=== PATIENT | male | born 1955 | race Caucasian/White ===

== ENCOUNTER 2018-02-05 04:33 | Emergency (ER) | payer OTHER, SELFPAY ==
[2018-02-05 04:34] VITALS: BP 131/85; PULSE 57; RESP 24; TEMP 36.2; O2SAT 97; BMI 32.8
[2018-02-05 04:39] VITALS: PULSE 55
[2018-02-05 04:40] VITALS: BP 139/83; PULSE 53; RESP 16; O2SAT 96
--- NOTE | 2018-02-05 04:40 | RAD_ITS ---
STUDY: X-RAY CHEST REASON FOR EXAM: Male, 62 years old. Headache TECHNIQUE: Single frontal view of the chest. COMPARISON: 08/27/2016 FINDINGS: The lungs are clear and expanded. There is no demonstrated pleural abnormality. Normal size heart. Normal mediastinum and esther. Normal visualized pulmonary arteries. Normal visualized aortic arch and descending thoracic aorta. Lumbar vertebroplasty. Normal visualized ribs, clavicles, and shoulders. There is no demonstrated abnormality of the visualized soft tissue structures of the upper abdomen. RAD/Chest 1 View IMPRESSION: No acute pulmonary findings. Electronically Signed: Biju Marie MD at 5:22 EDT Tel , Service support ,
--- NOTE | 2018-02-05 04:40 | CT_ITS ---
STUDY: CT BRAIN WITHOUT CONTRAST REASON FOR EXAM: Male, 62 years old. Sudden onset of severe headache. Right-sided pain. RADIATION DOSAGE (If Supplied By Facility): CTDIvol = ( 44.99 ) mGy, DLP = ( 846.73 ) mGycm TECHNIQUE: Transaxial CT imaging of the brain was performed without administration of intravenous contrast material. Individualized dose optimization techniques were used for this CT. COMPARISON: None. FINDINGS: Normal soft tissue structures. Normal calvarium. Normal size ventricles and extra-axial spaces for the patient's age. Normal white matter tracts of the cerebral hemispheres. Normal basal ganglia and thalami. Normal brainstem. Normal cerebellum. Peripheral right posterior parietal parenchymal hematoma measuring 3.8 x 2.8 x 1.5 cm. There are no findings of an acute ischemic infarction. Left anterior ethmoid sinus mucosal thickening. Postoperative changes of bilateral maxillary sinus surgery. CT/Brain/Head without Contrast IMPRESSION: Parenchymal hematoma right posterior parietal lobe. Considerations include arteriovenous malformation, hemorrhagic mycotic aneurysm, amyloidosis or hemorrhagic metastasis. Recommend MRI with contrast for further evaluation. N.B. : The above information has been verbally conveyed by Jani Alfred MD to Poppy Ramos MD, on 02/05/2018 05:23:33 (ET). Electronically Signed: Jani Alfred MD at 5:13 EDT , Service support ,
--- NOTE | 2018-02-05 04:40 | EKG12_ITS ---
Test Reason : HEADACHE Blood Pressure : / mmHG Vent. Rate : 055 BPM Atrial Rate : 055 BPM P-R Int : 178 ms QRS Dur : 090 ms QT Int : 470 ms P-R-T Axes : 025 -20 018 degrees QTc Int : 449 ms Sinus bradycardia Moderate voltage criteria for LVH, may be normal variant Borderline ECG Confirmed by NISREEN RIOJAS, QUETA ([id number]), editorial specialist MARY MCCARTY ([id number]) on 02/12/2018 1:53:32 PM Referred By: YELENA Confirmed By:QUETA NIELSON MD
--- NOTE | 2018-02-05 04:40 | ED.RN ---
called for ekg per rn request, pulled old ekgs for
--- NOTE | 2018-02-05 04:41 | ED.VISSUMM ---
- ER Visit Summary Date of Service: 02/05/18 Chief Complaint: Headache History of Present Illness: The patient is a 62 M who presents for severe headache. Patient had been having a headache that occurred while in bed for approximately 2 hours, with sudden acute worsening. Patient states it is the worst headache he has had. He has been receiving a workup for headaches at the [facility] and had a negative MRI. He states this headache is worse than any he has had before. It is in his frontal head and radiates back to the occipital region. He has associated nausea. Patient denies any numbness or weakness in the arms or legs. He has had mild blurry vision. Upon arrival in the emergency department he had a near syncopal episode. Patient has history of a TIA. No history of diabetes, myocardial infarction, but he does have history of coronary artery disease and one stent in place. No history of trauma. Patient is not on any anticoagulation but is on plavix and aspirin. Physical Examination: Vital signs: afebrile, hemodynamically stable, no hypoxia on room air General: well nourished, well developed, in mild distress distress Skin: warm, dry, no rash, skin is pale HEENT: normocephalic and atraumatic, no tenderness, no lesions; PERRL, EOMI, moist mucous membranes no facial droop Cardiovascular: regular rate and rhythm without murmurs, no peripheral edema, 2+ pulses all distal extremities upper and lower, symmetric Respiratory: No increased work of breathing, lungs are clear to auscultation bilaterally, no rales, rhonchi or wheezing Abdominal: Abdomen is soft, nontender with normoactive bowel sounds, no guarding or rebound, no masses MSK: Moves all extremities, no deformities, normal strength Neuro: Awake and alert, oriented ?4. No facial droop, no aphasia, no dysarthria, sensation and motor function intact and symmetric Test Results: Abnormal Lab Results 02/05/18 02/05/18 02/05/18 04:35 04:35 04:35 WBC 10.1 RBC 4.98 Hgb 15.2 Hct 41.7 MCV 83.7 MCH 30.5 MCHC 36.5 H RDW 12.6 RDW Differential 37.9 Plt Count 308 MPV 9.9 Immature Gran % (Auto) 0.600 Neut % (Auto) 59.3 Lymph % (Auto) 29.4 [place] % (Auto) 8.5 Eos % (Auto) 1.4 Baso % (Auto) 0.8 Absolute Neuts (auto) 6.0 Absolute Lymphs (auto) 2.96 Total Counted Not Reportable PT 13.5 INR 1.0 APTT 30.8 Sodium 142 Potassium 3.5 Chloride 106 Carbon Dioxide 27.0 Anion Gap 9 BUN 10 Creatinine 1.01 Estim Creat Clear Calc 73.89 Est GFR (MDRD) Af Amer 96 Est GFR (MDRD) Non-Af 79 BUN/Creatinine Ratio 9.9 L Glucose 114 H Calcium 8.8 Troponin I < 0.015 Clinical Impression(s) from Imaging Studies Brain CT 02/05/18 04:40 IMPRESSION: Parenchymal hematoma right posterior parietal lobe. Considerations include arteriovenous malformation, hemorrhagic mycotic aneurysm, amyloidosis or hemorrhagic metastasis. Recommend MRI with contrast for further evaluation. N.B. : The above information has been verbally conveyed by Jani Alfred MD to Poppy Ramos MD, on 02/05/2018 05:23:33 (ET). Electronically Signed: Jani Alfred MD at 5:13 EDT , Service support , Chest X-Ray 02/05/18 04:40 IMPRESSION: No acute pulmonary findings. Electronically Signed: Biju Marie MD at 5:22 EDT Tel , Service support , Medications Given Sodium Chloride () 1,000 mls @ 100 mls/hr IV .Q10H ONE Stop: 02/05/18 14:39 Last Admin: 02/05/18 05:07 Dose: 100 mls/hr Nicardipine HCl 25 mg/ Sodium (Chloride) 250 mls @ 50 mls/hr IV .Q5H MARIANO; Protocol Discontinued Medications Fentanyl Citrate (Sublimaze (100mcg Ampule)) 50 mcg IV X1 ONE Stop: 02/05/18 05:02 Last Admin: 02/05/18 05:07 Dose: 50 mcg Ondansetron HCl (Zofran) 4 mg IV X1 ONE Stop: 02/05/18 05:03 Last Admin: 02/05/18 04:44 Dose: 4 mg Emergency Department Course and Treatment: Patient presents complaining of a severe headache and had a near syncopal episode upon initial presentation. Patient initially was pale and appeared very uncomfortable, however at the end of the examination, his skin had returned to pink and warm, and he was able to keep his eyes open without discomfort. No neuro deficits noted on initial evaluation. Patient had an emergent head CT performed to evaluate for possible intracranial hemorrhage and it was positive for IPH of right parietal lobe. Emergent transport to [facility] for neurosurgical specialty care was arranged at patient's request of tertiary care center. Patient accepted by Dr. Guy. Patient remained hemodynamically stable and did not require any anti-hypertensive medications. Nicardipine drip ordered in case of increased BP. Patient given fentanyl for pain, titrated to pain control without causing altered mental status. Patient maintained his airway and had no decompensation. Repeat neuro evaluation did show some left visual field deficits, but no other neurologic deficits. Patient was transported via helicopter in clinic for further neurosurgical intervention. Care time of 38 minutes for emergent stabilization and evaluation, coordination of care, arrangement of transportation, discussion with specialist, frequent re-evaluations, and discussion with patient and family. Treatment Plan: [] Disposition: transfer to [facility] Main neurosurgical ICU via air transport Impression: spontaneous right posterior parietal lobe intraparenchymal hemorrhage This note was generated with [employer] dictation software. It may contain incorrect words, spelling, and punctuation that were not noted in review of the chart prior to signing ED Disposition - Plan for ED Patient: Chief Complaint: Headache Referrals: Nenita Knott MD [Primary Care Provider] -
[2018-02-05] MEDS: Ondansetron 4 MG/2 ML Vial IV (04:44)
--- NOTE | 2018-02-05 04:47 | ED.DCSUM_ITS ---
- ER Visit Summary Date of Service: 02/05/18 Chief Complaint: Headache History of Present Illness: The patient is a 62 M who presents for severe headache. Patient had been having a headache that occurred while in bed for approximately 2 hours, with sudden acute worsening. Patient states it is the worst headache he has had. He has been receiving a workup for headaches at the [facility] and had a negative MRI. He states this headache is worse than any he has had before. It is in his frontal head and radiates back to the occipital region. He has associated nausea. Patient denies any numbness or weakness in the arms or legs. He has had mild blurry vision. Upon arrival in the emergency department he had a near syncopal episode. Patient has history of a TIA. No history of diabetes, myocardial infarction, but he does have history of coronary artery disease and one stent in place. No history of trauma. Patient is not on any anticoagulation but is on plavix and aspirin. Physical Examination: Vital signs: afebrile, hemodynamically stable, no hypoxia on room air General: well nourished, well developed, in mild distress distress Skin: warm, dry, no rash, skin is pale HEENT: normocephalic and atraumatic, no tenderness, no lesions; PERRL, EOMI, moist mucous membranes no facial droop Cardiovascular: regular rate and rhythm without murmurs, no peripheral edema, 2+ pulses all distal extremities upper and lower, symmetric Respiratory: No increased work of breathing, lungs are clear to auscultation bilaterally, no rales, rhonchi or wheezing Abdominal: Abdomen is soft, nontender with normoactive bowel sounds, no guarding or rebound, no masses MSK: Moves all extremities, no deformities, normal strength Neuro: Awake and alert, oriented ?4. No facial droop, no aphasia, no dysarthria, sensation and motor function intact and symmetric Test Results: Abnormal Lab Results 02/05/18 02/05/18 02/05/18 04:35 04:35 04:35 WBC 10.1 RBC 4.98 Hgb 15.2 Hct 41.7 MCV 83.7 MCH 30.5 MCHC 36.5 H RDW 12.6 RDW Differential 37.9 Plt Count 308 MPV 9.9 Immature Gran % (Auto) 0.600 Neut % (Auto) 59.3 Lymph % (Auto) 29.4 [place] % (Auto) 8.5 Eos % (Auto) 1.4 Baso % (Auto) 0.8 Absolute Neuts (auto) 6.0 Absolute Lymphs (auto) 2.96 Total Counted Not Reportable PT 13.5 INR 1.0 APTT 30.8 Sodium 142 Potassium 3.5 Chloride 106 Carbon Dioxide 27.0 Anion Gap 9 BUN 10 Creatinine 1.01 Estim Creat Clear Calc 73.89 Est GFR (MDRD) Af Amer 96 Est GFR (MDRD) Non-Af 79 BUN/Creatinine Ratio 9.9 L Glucose 114 H Calcium 8.8 Troponin I < 0.015 Clinical Impression(s) from Imaging Studies Brain CT 02/05/18 04:40 IMPRESSION: Parenchymal hematoma right posterior parietal lobe. Considerations include arteriovenous malformation, hemorrhagic mycotic aneurysm, amyloidosis or hemorrhagic metastasis. Recommend MRI with contrast for further evaluation. N.B. : The above information has been verbally conveyed by Jani Alfred MD to Poppy Ramos MD, on 02/05/2018 05:23:33 (ET). Electronically Signed: Jani Alfred MD at 5:13 EDT , Service support , Chest X-Ray 02/05/18 04:40 IMPRESSION: No acute pulmonary findings. Electronically Signed: Biju Marie MD at 5:22 EDT Tel , Service support , Medications Given Sodium Chloride () 1,000 mls @ 100 mls/hr IV .Q10H ONE Stop: 02/05/18 14:39 Last Admin: 02/05/18 05:07 Dose: 100 mls/hr Nicardipine HCl 25 mg/ Sodium (Chloride) 250 mls @ 50 mls/hr IV .Q5H MARIANO; Protocol Discontinued Medications Fentanyl Citrate (Sublimaze (100mcg Ampule)) 50 mcg IV X1 ONE Stop: 02/05/18 05:02 Last Admin: 02/05/18 05:07 Dose: 50 mcg Ondansetron HCl (Zofran) 4 mg IV X1 ONE Stop: 02/05/18 05:03 Last Admin: 02/05/18 04:44 Dose: 4 mg Emergency Department Course and Treatment: Patient presents complaining of a severe headache and had a near syncopal episode upon initial presentation. Patient initially was pale and appeared very uncomfortable, however at the end of the examination, his skin had returned to pink and warm, and he was able to keep his eyes open without discomfort. No neuro deficits noted on initial evaluation. Patient had an emergent head CT performed to evaluate for possible intracranial hemorrhage and it was positive for IPH of right parietal lobe. Emergent transport to [facility] for neurosurgical specialty care was arranged at patient's request of tertiary care center. Patient accepted by Dr. Guy. Patient remained hemodynamically stable and did not require any anti-hypertensive medications. Nicardipine drip ordered in case of increased BP. Patient given fentanyl for pain, titrated to pain control without causing altered mental status. Patient maintained his airway and had no decompensation. Repeat neuro evaluation did show some left visual field deficits, but no other neurologic deficits. Patient was transported via helicopter in clinic for further neurosurgical intervention. Care time of 38 minutes for emergent stabilization and evaluation, coordination of care, arrangement of transportation, discussion with specialist, frequent re- evaluations, and discussion with patient and family. Treatment Plan: [] Disposition: transfer to [facility] Main neurosurgical ICU via air transport Impression: spontaneous right posterior parietal lobe intraparenchymal hemorrhage This note was generated with [employer] dictation software. It may contain incorrect words, spelling, and punctuation that were not noted in review of the chart prior to signing ED Disposition - Plan for ED Patient: Chief Complaint: Headache Referrals: Nenita Knott MD [Primary Care Provider] -
[2018-02-05 04:51] VITALS: O2SAT 97
[2018-02-05 04:51] LABS: Absolute Lymphocyte Count 2.96 X10^3/ul (0.83-4.51); Basophil# 0.08 X10^3/uL; Basophil% 0.8 % (0-1); Eosinophil# 0.14 X10^3/uL; Eosinophils% 1.4 % (0-5); Hematocrit 41.7 % (40-54); Hemoglobin 15.2 g/dl (13.0-16.5); Lymphocyte # 2.96 X10^3/ul (4.0); Lymphocyte % 29.4 % (19-41); Mean Corp Hgb Conc 36.5 g/gl (32-36); Mean Corpuscular Hgb 30.5 pg (27.0-32.0); Mean Corpuscular Volume 83.7 fL (80-94); Mean Platelet Vol. 9.9 fl (6.2-12.0); Monocyte# 0.86 X10^3/uL; Monocyte% 8.5 % (0-10); Neutrophil # 5.96 X10^3/uL (2.7-7.7); Neutrophil % 59.3 % (47-70); Platelet Count 308 K/mm3 (150-450); RBC Distribution Width CV 12.6 % (11.6-14.6); RBC Distribution Width SD 37.9 fl (35.1-43.9); Red Blood Count 4.98 M/mm3 (4.6-6.2); White Blood Count 10.1 K/mm3 (4.4-11.0)
[2018-02-05 04:52] LABS: POSITIVE COUNT NO; POSITIVE DIFFERENTIAL NO; POSITIVE MORPHOLOGY NO
[2018-02-05] MEDS: 0.9% Normal Saline 1,000 ML 100 ML IV (05:07)
[2018-02-05] MEDS: fentaNYL 100 MCG/2 ML Ampul 50 MCG IV (05:07)
[2018-02-05 05:11] LABS: Prothrombin Time (Protime)PT. 13.5 SECONDS (11.7-14.9)
[2018-02-05 05:12] LABS: Anion Gap 9 (5-15); BUN 10 mg/dL (7-18); BUN/Creat Ratio 9.9 RATIO (10-20); Calcium,Total 8.8 mg/dL (8.5-10.1); Chloride 106 mmol/L (98-107); Creatinine, Serum 1.01 mg/dL (0.70-1.30); EST Glomerular Filtration Rate 79 mL/min (>60); Est Glom Filt Rate - Afr Amer 96 mL/min (>60); Estimated Creatinine Clearance 73.89 ml/min; Glucose 114 mg/dL (74-106); Partial Thromboplast Time 30.8 Seconds (24.1-36.2); Potassium 3.5 mmol/L (3.5-5.1); Sodium Level 142 mmol/L (136-145)
[2018-02-05] MEDS: fentaNYL 100 MCG/2 ML Ampul IV (05:37)
--- NOTE | 2018-02-05 05:39 | ED.RN ---
BEDSIDE REPORT GIVEN TO [facility]. DR. KIRK AT BEDSIDE.
[2018-02-05 05:52] VITALS: BP 124/79; PULSE 57; RESP 16; O2SAT 97
--- NOTE | 2018-02-05 05:56 | ED.RN ---
RU SENT WITH [facility] [employer] [facility].
[2018-02-05 07:15] LABS: Bedside Glucose 120 mg/dL (70-110)
== END 2018-02-05 05:57 | disposition short-term general hospital (02) ==
PROVIDERS: Emergency Provider Emergency Medicine; Family Provider Internal Medicine; PCP Internal Medicine
DX: I61.1 Nontraumatic intracerebral hemorrhage in hemisphere, cortical (principal); Z86.73 Personal history of transient ischemic attack (TIA), and cerebral infarction without residual deficits
CPT/HCPCS: 70450; 71045; 80048; 82962; 84484; 85025; 85610; 85730; 93005; 99285; J7030; J7050; A4216; J2405

== ENCOUNTER 2018-05-13 12:04 | Emergency (ER) | payer SELFPAY ==
[2018-05-13 12:05] VITALS: BP 135/85; PULSE 60; RESP 12; TEMP 36.7; O2SAT 94; BMI 33.0
--- NOTE | 2018-05-13 12:24 | EKG12_ITS ---
Test Reason : WEAKNESS Blood Pressure : / mmHG Vent. Rate : 055 BPM Atrial Rate : 055 BPM P-R Int : 180 ms QRS Dur : 090 ms QT Int : 440 ms P-R-T Axes : 023 -14 019 degrees QTc Int : 420 ms Sinus bradycardia Minimal voltage criteria for LVH, may be normal variant Borderline ECG Confirmed by NISREEN RIOJAS, QUETA ([id number]), editor producer MARY MCCARTY ([id number]) on 05/19/2018 9:55:56 AM Referred By: DOMINIQUE Confirmed By:QUETA NIELSON MD
[2018-05-13] MEDS: 0.9% Normal Saline 1,000 ML 150 ML IV (12:51)
[2018-05-13 12:53] LABS: Bacteria 0 SEEN /hpf (None Seen); Mucous, Urine 0 SEEN /hpf (<or=2+); Red Blood Cells-Urine 0 SEEN /hpf (0-5)
[2018-05-13 12:54] LABS: Color, Urine Yellow (Yellow); Glucose, Dipstick Normal (Normal); Ketone-Dipstick Negative (Negative); Leukocyte Esterase-Dipstick Negative /ul (Negative); Nitrite-Dipstick Negative (Negative); Occult Blood-Urine Negative /ul (Negative); Protein-Dipstick Negative (Negative); Urine Bilirubin Dipstick Negative (Negative); Urine Clarity Sl. Cloudy (Clear); Urine Urobilinogen Normal (Normal)
[2018-05-13 12:57] LABS: Absolute Lymphocyte Count 1.95 X10^3/ul (0.83-4.51); Absolute Neutrophil Count 5.5 X10^3/uL (2.0-7.7); Basophil# 0.05 X10^3/uL; Basophil% 0.6 % (0-1); Eosinophil# 0.11 X10^3/uL; Eosinophils% 1.3 % (0-5); Hematocrit 45.4 % (40-54); Lymphocyte # 1.95 X10^3/ul (4.0); Lymphocyte % 23.4 % (19-41); Mean Corp Hgb Conc 35.2 g/gl (32-36); Mean Corpuscular Hgb 30.1 pg (27.0-32.0); Mean Corpuscular Volume 85.3 fL (80-94); Mean Platelet Vol. 10.1 fl (6.2-12.0); Monocyte# 0.67 X10^3/uL; Neutrophil # 5.52 X10^3/uL (2.7-7.7); Neutrophil % 66.3 % (47-70); POSITIVE COUNT NO; POSITIVE DIFFERENTIAL NO; POSITIVE MORPHOLOGY NO; Platelet Count 274 K/mm3 (150-450); RBC Distribution Width CV 12.7 % (11.6-14.6); RBC Distribution Width SD 39.2 fl (35.1-43.9); Red Blood Count 5.32 M/mm3 (4.6-6.2); White Blood Count 8.3 K/mm3 (4.4-11.0)
--- NOTE | 2018-05-13 12:58 | RAD_ITS ---
STUDY: X-RAY CHEST REASON FOR EXAM: Male, 62 years old. Weakness. TECHNIQUE: Single AP portable view of the chest. COMPARISON: Comparison is made with prior study dated February 05, 2018. FINDINGS: EKG electrodes are seen. Hyperinflation. The lungs are clear. There is no demonstrated pleural abnormality. There is borderline cardiomegaly. Normal mediastinum and esther. Normal visualized pulmonary arteries. There is atherosclerotic tortuosity of the aortic arch and descending thoracic aorta. There are diffuse degenerative changes of the visualized thoracic spine. Normal visualized ribs, clavicles, and shoulders. There is no demonstrated abnormality of the visualized soft tissue structures of the upper abdomen. RAD/Chest 1 View (Portable) IMPRESSION: Borderline cardiomegaly. Electronically Signed: Mars Jacinto MD at 13:40 EST , Service support ,
[2018-05-13 13:01] LABS: Squamous Epithelial Cells - UA 0-5 SEEN /hpf (0-5); White Blood Cells 0-5 SEEN /hpf (0-5)
[2018-05-13 13:10] LABS: Anion Gap 8 (5-15); BUN 13 mg/dL (7-18); BUN/Creat Ratio 13.1 RATIO (10-20); Calcium,Total 9.2 mg/dL (8.5-10.1); Chloride 104 mmol/L (98-107); EST Glomerular Filtration Rate 80 mL/min (>60); Est Glom Filt Rate - Afr Amer 97 mL/min (>60); Estimated Creatinine Clearance 74.63 ml/min; Glucose 124 mg/dL (74-106); Potassium 3.4 mmol/L (3.5-5.1); Sodium Level 140 mmol/L (136-145)
--- NOTE | 2018-05-13 13:23 | CT_ITS ---
STUDY: CT BRAIN WITHOUT CONTRAST REASON FOR EXAM: Male, 62 years old. Worsening four-day weakness. RADIATION DOSAGE (If Supplied By Facility): CTDIvol = ( 44.99 ) mGy, DLP = ( 812.98 ) mGycm TECHNIQUE: Transaxial CT imaging of the brain was performed without administration of intravenous contrast material. Individualized dose optimization techniques were used for this CT. COMPARISON: Comparison is made with prior study dated February 05, 2018. FINDINGS: Normal soft tissue structures. Normal calvarium. The previously seen posterior parietal parenchymal hematoma as resolved. Normal size ventricles and extra-axial spaces for the patient's age. There are areas of decreased attenuation within the white matter tracts of the supratentorial brain, consistent with microvascular disease changes. Normal basal ganglia and thalami. Normal brainstem. Normal cerebellum. There is no intracranial hemorrhage. There are no findings of an acute ischemic infarction. Atherosclerotic calcification of the vertebral arteries and cavernous portions of the internal carotid arteries bilaterally. Normal visualized paranasal sinuses. CT/Brain/Head without Contrast IMPRESSION: The previously seen right posterior parietal parenchymal hematoma has resolved. No acute abnormality is seen. Electronically Signed: Mars Jacinto MD at 15:31 EST , Service support ,
[2018-05-13 14:48] VITALS: BP 123/83; PULSE 58; RESP 14; O2SAT 97
[2018-05-13 15:38] VITALS: BP 132/88; PULSE 57; RESP 14; O2SAT 96
--- NOTE | 2018-05-13 15:47 | ED.VISSUMM ---
- ER Visit Summary Date of Service: 05/13/18 Chief Complaint: [Weakness] History of Present Illness: The patient is a 62 M [presents to the emergency department complaint of generalized weakness that started 3 or 4 days ago. Patient states that he had a intracranial hemorrhage in January 2018. Since that time he had been doing well and has had some mild peripheral vision loss and intermittent dizziness. Over the last 3-4 days patient just feels like energy is drained out of him. He denies any exertional dyspnea or chest pain other than yesterday he had an episode that was very fleeting of some minimal chest tightness that resolved quickly. Today patient felt somewhat sweaty and diaphoretic but no chest pain. He does have a history of coronary artery disease with prior cardiac stent placed in 2013. Patient tells me that proximally September 2017 he had a heart catheterization that did not show any type of stenosis requiring intervention. Patient denies any blood in his stool or black tarry stool. He denies any infectious symptoms such as cough or vomiting or diarrhea. Patient is not had a fever.] Physical Examination: [HEENT-PERRLA, EOMI. Cranial nerves II through XII grossly intact. TMs clear. Mucous membranes moist. No adenopathy. Cardiovascular-regular rate and rhythm without murmur or ectopy Lungs-clear to auscultation, chest wall stable without crepitus or subcu emphysema Abdomen-normoactive bowel sounds, soft, nontender, no rebound or rigidity, no peritoneal signs. Extremities-intact ?4, normal range of motion, normal pulses, atraumatic] Test Results: [EKG obtained arrival showed sinus bradycardia with a ventricular rate of 55 bpm with no significant ST changes noted. CBC with differential obtained showed a white of 8.3, hemoglobin 16, hematocrit 45, platelets 274. Chemistries unremarkable other than a slightly depressed potassium at 3.4 for which I did write for 40 mEq of potassium chloride p.o. urinalysis was normal. Troponin was less than 0.015. Chest x-ray showed some borderline cardiomegaly. CT scan of the brain showed nothing acute.] Emergency Department Course and Treatment: [Patient was given normal saline. Patient had no further diaphoresis in the emergency department. He denies chest pain or shortness of breath at this time. His symptoms are different than the symptoms that he had when he required his cardiac stent.] Treatment Plan: [Had a long discussion with patient to the fact that I do not have a clear etiology of the cause of his symptoms. Given that his EKG is unremarkable and has a normal troponin and patient is not had exertional symptoms suspicion is low that symptoms are from a cardiac cause especially given that he has had a heart catheterization within the last 7-8 months. Discussed possible admission and stress testing versus going home and following up with primary care. Patient would prefer to go home and return if symptoms should return in any way. Patient has follow-up appointments later this week with his physicians from prior stroke.] Disposition: [Discharged home in stable condition. Patient advised to return if chest pain, increasing shortness of breath, or condition should worsen anyway.] Impression: [Generalized weakness-etiology uncertain] This note was generated with [employer] dictation software. It may contain incorrect words, spelling, and punctuation that were not noted in review of the chart prior to signing ED Disposition - Plan for ED Patient: Referrals: Nenita Knott MD [Primary Care Provider] -
--- NOTE | 2018-05-13 15:53 | ED.DEP ---
ED Disposition - Plan for ED Patient: Instructions: ED Weakness [facility] Referrals: Nenita Knott MD [Primary Care Provider] - 3-5 Days
[2018-05-13 16:05] VITALS: BP 136/100; PULSE 58; RESP 16; O2SAT 96
== END 2018-05-13 16:08 | disposition home or self-care (01) ==
LOC: ED 12:46
PROVIDERS: Emergency Provider Emergency Medicine; Family Provider Internal Medicine; PCP Internal Medicine
DX: R53.1 Weakness (principal); I25.10 Atherosclerotic heart disease of native coronary artery without angina pectoris; I10 Essential (primary) hypertension; Z95.5 Presence of coronary angioplasty implant and graft
CPT/HCPCS: 70450; 71045; 80048; 81001; 84484; 85025; 93005; 96360; 96361; 99284; J7030

== ENCOUNTER 2018-05-24 17:28 | Emergency (ER) | payer SELFPAY ==
[2018-05-24 17:28] VITALS: BP 127/83; PULSE 58; RESP 17; TEMP 36.4; O2SAT 94; BMI 32.5
--- NOTE | 2018-05-24 17:40 | EKG12_ITS ---
Test Reason : CP Blood Pressure : / mmHG Vent. Rate : 057 BPM Atrial Rate : 057 BPM P-R Int : 166 ms QRS Dur : 086 ms QT Int : 444 ms P-R-T Axes : 008 -25 023 degrees QTc Int : 432 ms Sinus bradycardia Minimal voltage criteria for LVH, may be normal variant Borderline ECG Confirmed by NISREEN RIOJAS, QUETA ([id number]), technical writer and editor MARY MCCARTY ([id number]) on 05/27/2018 10:19:05 AM Referred By: Confirmed By:QUETA NIELSON MD
--- NOTE | 2018-05-24 17:40 | RAD_ITS ---
STUDY: X-RAY CHEST REASON FOR EXAM: Male, 62 years old. Chest pain TECHNIQUE: AP COMPARISON: 05/13/2018 FINDINGS: EKG leads project over the chest. The lungs are clear and expanded. There is no demonstrated pleural abnormality. Normal size cardiac silhouette for portable technique. Normal mediastinum and esther. Normal visualized pulmonary arteries. There is atherosclerotic tortuosity of the aortic arch and descending thoracic aorta. No acute bony process. There is no demonstrated abnormality of the visualized soft tissue structures of the upper abdomen. RAD/Chest 1 View (Portable) IMPRESSION: Stable, nonacute portable x-ray examination of the chest. Electronically Signed: Blas Dee MD at 18:06 EST , Service support ,
[2018-05-24 17:41] VITALS: O2SAT 95
[2018-05-24] MEDS: Aspirin 81 MG TAB.CHEW 243 MG PO (17:44)
[2018-05-24] MEDS: 0.9% Normal Saline 1,000 ML 150 ML IV (17:44)
--- NOTE | 2018-05-24 17:44 | ED.DCSUM_ITS ---
- ER Visit Summary Date of Service: 05/24/18 Chief Complaint: Chest pain History of Present Illness: The patient is a 62 M is not felt well for the last 10 days or so. Patient was seen here in the ER 9 days ago with generalized fatigue and a single episode of some chest tightness. Workup was unremarkable. Patient states symptoms been waxing and waning since that time. He did not have chest tightness again until approximately 3 hours ago. He feels mildly short of breath stating that his pain is slightly worse when he takes a deep breath. He has not had significant cough. He did not break out in a sweat. Past history is significant for intracranial hemorrhage in January 2018. Patient states he saw his doctor yesterday for clearance from that. He does have heart history with a prior stent placed in 2013. Most recent cardiac cath is reportedly September 2017 that did not show any significant blockage. Physical Examination: Vital signs are unremarkable. Patient sitting upright in bed no acute distress. Head and neck examination normal. Heart is regular rate and rhythm. Lung sounds are grossly clear. He has mild chest wall tenderness. No crepitus. Abdomen is soft and nontender. Lower extremity examination reveals no calf tenderness or edema. Test Results: EKG is sinus at 57 with no acute ischemia. Portable chest x-ray is unremarkable. CBC and chemistry studies normal. Troponin less than 0.015. D-dimer 0.37. Emergency Department Course and Treatment: Patient did receive aspirin here. On repeat evaluation he is resting comfortably and visiting with family. We discussed admission for stress test versus heart cath as he did require stent in the past with a normal stress test. At this time patient declines admission. We discussed risks alternatives. He understands and wishes to go home. He will call for cardiology follow-up. If his symptoms worsen in any way he is to return immediately. Treatment Plan: [] Disposition: Discharge Impression: Chest pain This note was generated with [employer] dictation software. It may contain incorrect words, spelling, and punctuation that were not noted in review of the chart frida or to signing ED Disposition - Plan for ED Patient: Referrals: Nenita Knott MD [Primary Care Provider] -
[2018-05-24 18:07] LABS: Absolute Lymphocyte Count 1.83 X10^3/ul (0.83-4.51); Absolute Neutrophil Count 5.7 X10^3/uL (2.0-7.7); Basophil# 0.04 X10^3/uL; Basophil% 0.5 % (0-1); Eosinophil# 0.07 X10^3/uL; Eosinophils% 0.8 % (0-5); Hematocrit 47.1 % (40-54); Hemoglobin 16.3 g/dl (13.0-16.5); Lymphocyte # 1.83 X10^3/ul (4.0); Lymphocyte % 22.2 % (19-41); Mean Corp Hgb Conc 34.6 g/gl (32-36); Mean Corpuscular Hgb 30.1 pg (27.0-32.0); Mean Corpuscular Volume 87.1 fL (80-94); Mean Platelet Vol. 10.1 fl (6.2-12.0); Monocyte# 0.56 X10^3/uL; Monocyte% 6.8 % (0-10); Neutrophil # 5.72 X10^3/uL (2.7-7.7); Neutrophil % 69.5 % (47-70); Platelet Count 273 K/mm3 (150-450); RBC Distribution Width CV 12.9 % (11.6-14.6); RBC Distribution Width SD 40.7 fl (35.1-43.9); Red Blood Count 5.41 M/mm3 (4.6-6.2); White Blood Count 8.2 K/mm3 (4.4-11.0)
[2018-05-24 18:08] LABS: POSITIVE COUNT NO; POSITIVE DIFFERENTIAL NO; POSITIVE MORPHOLOGY NO
[2018-05-24 18:13] LABS: D-Dimer Quantitative (DVT/PE) 0.37 FEU/ug/m (0.27-0.49)
[2018-05-24 18:30] VITALS: BP 121/66; PULSE 58; RESP 14; O2SAT 96
[2018-05-24 18:34] LABS: Anion Gap 8 (5-15); BUN 14 mg/dL (7-18); BUN/Creat Ratio 13.7 RATIO (10-20); Calcium,Total 8.9 mg/dL (8.5-10.1); Chloride 108 mmol/L (98-107); Creatinine, Serum 1.02 mg/dL (0.70-1.30); EST Glomerular Filtration Rate 78 mL/min (>60); Est Glom Filt Rate - Afr Amer 94 mL/min (>60); Estimated Creatinine Clearance 73.16 ml/min; Glucose 111 mg/dL (74-106); Potassium 3.8 mmol/L (3.5-5.1); Sodium Level 144 mmol/L (136-145)
--- NOTE | 2018-05-24 19:21 | ED.DEP ---
ED Disposition - Plan for ED Patient: Disposition: Home or Assisted Living Instructions: ED Chest Pain Atypical Unkn Cause Referrals: Nenita Knott MD [Primary Care Provider] - Jones Andrews MD [STAFF PHYSICIAN] -
[2018-05-24 19:25] VITALS: BP 120/72; PULSE 55; RESP 16; O2SAT 95
== END 2018-05-24 19:30 | disposition home or self-care (01) ==
PROVIDERS: Emergency Provider Emergency Medicine; Family Provider Internal Medicine; PCP Internal Medicine
DX: R07.9 Chest pain, unspecified (principal); R06.00 Dyspnea, unspecified; I25.10 Atherosclerotic heart disease of native coronary artery without angina pectoris; Z86.73 Personal history of transient ischemic attack (TIA), and cerebral infarction without residual deficits; Z95.5 Presence of coronary angioplasty implant and graft
CPT/HCPCS: 71045; 80048; 84484; 85025; 85379; 93005; 96360; 96361; 99283; J7030; A4216

== ENCOUNTER 2018-05-25 12:21 | Observation (INO) | payer SELFPAY ==
[2018-05-24 17:28] VITALS: BMI 32.5
[2018-05-25] VITALS (10 sets, daily range): BP systolic 114–127; BP diastolic 67–76; PULSE 53–65; RESP 12–18; TEMP 36.8–37; O2SAT 94–96; BMI 32.5; BMI 33.3; BMI 33.4
--- NOTE | 2018-05-25 12:36 | RAD_ITS ---
STUDY: X-RAY CHEST REASON FOR EXAM: Male, 62 years old. Chest pain started on 05/24/2018, worsening TECHNIQUE: AP COMPARISON: Yesterday FINDINGS: EKG leads project over the chest. The lungs are clear and expanded. There is no demonstrated pleural abnormality. Normal size heart. Normal mediastinum and esther. Normal visualized pulmonary arteries. There is atherosclerotic tortuosity of the aortic arch and descending thoracic aorta. Normal visualized thoracic spine. Normal visualized ribs, clavicles, and shoulders. There is no demonstrated abnormality of the visualized soft tissue structures of the upper abdomen. RAD/Chest 1 View (Portable) IMPRESSION: Stable, nonacute portable x-ray examination of the chest. Electronically Signed: Blas Dee MD at 12:52 EST , Service support ,
--- NOTE | 2018-05-25 12:36 | EKG12_ITS ---
Test Reason : CP Blood Pressure : / mmHG Vent. Rate : 058 BPM Atrial Rate : 058 BPM P-R Int : 182 ms QRS Dur : 090 ms QT Int : 436 ms P-R-T Axes : 029 -12 026 degrees QTc Int : 428 ms Sinus bradycardia Minimal voltage criteria for LVH, may be normal variant Borderline ECG Confirmed by NISREEN RIOJAS, QUETA ([id number]), health editor MARY MCCARTY ([id number]) on 05/27/2018 9:20:12 AM Referred By: Spike Olivier Confirmed By:QUETA NIELSON MD
[2018-05-25 12:47] LABS: Absolute Lymphocyte Count 1.99 X10^3/ul (0.83-4.51); Absolute Neutrophil Count 7.6 X10^3/uL (2.0-7.7); Basophil# 0.05 X10^3/uL; Basophil% 0.5 % (0-1); Eosinophil# 0.12 X10^3/uL; Eosinophils% 1.1 % (0-5); Hematocrit 45.4 % (40-54); Hemoglobin 15.7 g/dl (13.0-16.5); Lymphocyte # 1.99 X10^3/ul (4.0); Lymphocyte % 18.8 % (19-41); Mean Corp Hgb Conc 34.6 g/gl (32-36); Mean Corpuscular Hgb 29.9 pg (27.0-32.0); Mean Corpuscular Volume 86.5 fL (80-94); Monocyte% 7.6 % (0-10); Neutrophil # 7.57 X10^3/uL (2.7-7.7); Neutrophil % 71.7 % (47-70); Platelet Count 257 K/mm3 (150-450); RBC Distribution Width CV 12.7 % (11.6-14.6); RBC Distribution Width SD 40.1 fl (35.1-43.9); Red Blood Count 5.25 M/mm3 (4.6-6.2); White Blood Count 10.6 K/mm3 (4.4-11.0)
[2018-05-25 12:48] LABS: POSITIVE COUNT NO; POSITIVE DIFFERENTIAL NO; POSITIVE MORPHOLOGY NO
[2018-05-25] MEDS: Aspirin 81 MG TAB.CHEW 324 MG PO (13:00)
[2018-05-25 13:02] LABS: Anion Gap 9 (5-15); BUN 13 mg/dL (7-18); BUN/Creat Ratio 12.9 RATIO (10-20); Calcium,Total 8.7 mg/dL (8.5-10.1); Chloride 106 mmol/L (98-107); Creatinine, Serum 1.01 mg/dL (0.70-1.30); EST Glomerular Filtration Rate 79 mL/min (>60); Est Glom Filt Rate - Afr Amer 95 mL/min (>60); Estimated Creatinine Clearance 73.89 ml/min; Glucose 127 mg/dL (74-106); Potassium 3.5 mmol/L (3.5-5.1); Sodium Level 141 mmol/L (136-145)
--- NOTE | 2018-05-25 13:03 | ED.DCSUM_ITS ---
- ER Visit Summary Date of Service: 05/25/18 Chief Complaint: Chest pain History of Present Illness: The patient is a 62 M presenting with chest pain and heaviness. Pain has been intermittent for the past couple of days. He was seen in the ED yesterday for similar complaints. At that time he declined admission. He states the heaviness and pain has intensified therefore he came back to the ED for further evaluation. He has associated diaphoresis, shortness of breath, lightheadedness. He has a history of hypertension and family history of heart disease. He had a previous stent in 2013. He denies PE/DVT risk factors. Physical Examination: Vitals are stable. Patient is afebrile. Alert no acute distress. HEENT exam is unremarkable. Neck is supple. Lungs are clear and equal bilaterally. Heart is regular rate and rhythm. Abdomen is soft nontender nondistended. Extremities are unremarkable. Skin is warm and dry. No focal neurologic deficit. Remainder of exam is unremarkable. Emergency Department Course and Treatment: Patient was given aspirin on arrival. He was given morphine, Zofran IV. EKG is sinus bradycardia rate of 58 with no acute ischemic changes. Chest x-ray shows no acute process. CBC unremarkable. Chemistries normal except for glucose 127. Troponin is negative. On reevaluation, patient is resting comfortably. Discussed with hospitalist for observation. Disposition: Observation Impression: Chest pain This note was generated with [employer] dictation software. It may contain incorrect words, spelling, and punctuation that were not noted in review of the chart prior to signing ED Disposition - Plan for ED Patient: Referrals: Nenita Knott MD [Primary Care Provider] -
[2018-05-25] MEDS: Ondansetron 4 MG/2 ML Vial IV (13:07)
[2018-05-25] MEDS: Morphine 4 MG/ML Syringe IV (13:07)
--- NOTE | 2018-05-25 13:53 | NURSING ---
PCU BRETT RITCHIE OBS
--- NOTE | 2018-05-25 13:53 | PCM.HP.STD ---
Problem List (1) Chest pain Status: Acute (2) CAD (coronary artery disease) Status: Chronic (3) CVA (cerebral vascular accident) Status: Chronic History of Present Illness Date of Admission: 05/25/18 Chief Complaint: CHEST PAIN The patient is a 62 year old M past medical history cigar for CAD with previous stent placement in September 2013 who presented with chest pain. Patient symptoms started a day prior to coming in. He had apparently been seen in the emergency department he was advised to stay to see care however he elected to be discharged and to present back if his pain worsened. He woke up on the morning of his presentation with recurrence. Pain was described as pressure located in the retrosternal region. Patient also did complain of some shortness of breath. Denied any nausea no vomiting. Presented to the ED as a result. Initial set of cardiac enzymes and EKG were unremarkable. Of note patient undergo left heart catheterization in September 2017 with no intervention performed. Past Medical History Past Medical History (Chronic Problems): Chronic Problems CVA (cerebral vascular accident) (Chronic) CAD (coronary artery disease) (Chronic) Allergies Penicillins Allergy (Verified 05/24/18 17:35) Rash Home Medications: Ambulatory Orders Medication Instructions Recorded Atorvastatin Calcium [Lipitor] 80 mg PO QHS 08/01/14 Lisinopril [Zestril] 20 mg PO DAILY 08/01/14 Nitroglycerin [Nitrostat] 0.4 mg SUBLINGUAL Q5M PRN 08/01/14 Aspirin [Aspirin EC] 81 mg PO DAILY 10/10/16 Chlorthalidone 25 mg PO DAILY 10/10/16 Metoprolol Tartrate [Lopressor 50 mg PO BID 10/10/16 (Beta Ashkan)] Surgical History: cholecystectomy, - - knee surgery, deviated septum Smoking Status: Never smoker - *Family History Maternal History Items: Cancer Paternal History Items: Cancer Sibling History Items: Cancer Review of Systems Constitutional: Denies: Anorexia, Chills, Fever, Night Sweats, Weight Change HEENT: Denies: Head Aches, Sinus Congestion, Sinus Drainage Cardiovascular: Denies: Chest Pain, Orthopnea, Palpitations, Paroxysmal Noc. Dyspnea Respiratory: Denies: Cough, Shortness of breath at rest, Shortness of breath upon exertion, Sputum production Gastrointestinal: Denies: Abdominal Pain, Hematemesis, Hematochezia, Nausea, Melena, Vomiting Genitourinary: Denies: Dysuria, Frequency, Hematuria, Urgency Musculoskeletal: Denies: Joint Pain, Joint Tenderness Skin: Denies: Rash Neurological: Denies: Focal weakness, Numbness, Tingling Psychiatric: Denies: Homicidal Ideations, Suicidal Ideations Hematologic/ Lymphatic: Denies: Easy Bruising, Easy Bleeding VTE Information - Inpt Only VTE Present on Admission: No VTE Mechan Device Prophylaxis: Knee High TAYLA Hose VTE Pharm Prophylaxis ordered?: Yes Patient Problems: Active and Suspected Problems Chest pain (Acute) Objective: GENERAL: cooperative HEENT: Atraumatic; moist oral mucosa EYES; Anicteric, Normal Conjunctiva NECK; supple, normal thyroid, no distended JVD. RESPIRATORY: Diminished to auscultation bilaterally, CARDIOVASCULAR: Regular S1 S2, no audible murmurs GI: soft, non-tender, normoactive bowel sounds, : No Renal angle tenderness; EXTREMITIES: No edema, no clubbing, no cyanosis. MUSCULOSKELETAL: No Joint Tenderness; no muscle waisting NEURO: Awake; no lateralizing signs. SKIN: No Rash PSYCH; Normal affect - Physical Exam Vital Signs Temp Pulse Resp BP Pulse Ox 98.6 F 55 L 12 124/74 H 95 05/25/18 12:21 05/25/18 13:21 05/25/18 13:21 05/25/18 13:21 05/25/18 13:21 Oxygen Delivery Method Room Air Weight: 99.79 kg Body Mass Index (BMI) 32.5 Finger Stick Blood Glucose 120 Laboratory Tests Past 24 Hrs 05/25/18 05/25/18 12:20 12:20 WBC 10.6 RBC 5.25 Hgb 15.7 Hct 45.4 MCV 86.5 MCH 29.9 MCHC 34.6 RDW 12.7 RDW Differential 40.1 Plt Count 257 MPV 10.0 Immature Gran % (Auto) 0.300 Neut % (Auto) 71.7 H Lymph % (Auto) 18.8 L Whitfield % (Auto) 7.6 Eos % (Auto) 1.1 Baso % (Auto) 0.5 Absolute Neuts (auto) 7.6 Absolute Lymphs (auto) 1.99 Total Counted Not Reportable Sodium 141 Potassium 3.5 Chloride 106 Carbon Dioxide 26.0 Anion Gap 9 BUN 13 Creatinine 1.01 Estim Creat Clear Calc 73.89 Est GFR (MDRD) Af Amer 95 Est GFR (MDRD) Non-Af 79 BUN/Creatinine Ratio 12.9 Glucose 127 H Calcium 8.7 Troponin I < 0.015 Assessment/Plan All Active Problems Chest pain (Acute) Patient is a 62-year-old gentleman with known CAD presented with chest pain 1. Chest Pain: Placed on a monitored bed; rule out for Myocardial infarction with serial cardiac enzymes and EKGs. If negative, rule out Myocardial Ischemia with nuclear medicine stress test. As part of his management ordered 2D echo and a requisition sent for old records from [facility] 2. CAD status post PCI in September 2013 3. Hypertension-blood pressure controlled, home medications continued with dose adjustment as needed 4. Dyslipidemia-patient is on statin therapy, continued at home dose 5. History of old hemorrhagic stroke in January 2018; no residual effect 6. BMI of 32.5 weight loss advised 7. DVT prophylaxis SC Lovenox Code Visit OBSV E&M: [id number] Initial observation care L3
--- NOTE | 2018-05-25 14:34 | EKG12_ITS ---
Test Reason : CP Blood Pressure : / mmHG Vent. Rate : 050 BPM Atrial Rate : 050 BPM P-R Int : 178 ms QRS Dur : 090 ms QT Int : 458 ms P-R-T Axes : 012 -16 009 degrees QTc Int : 417 ms Sinus bradycardia Minimal voltage criteria for LVH, may be normal variant Borderline ECG Confirmed by BASILIO RIOJAS, HERIBERTO ([id number]), food expeditor MARY MCCARTY ([id number]) on 05/28/2018 10:13:38 AM Referred By: Spike Olivier Confirmed By:HERIBERTO RICHMOND MD
--- NOTE | 2018-05-25 14:46 | ECHOD_ITS ---
Reason For Study: Chest pain Procedure This was a 2D Doppler, Color Flow transthoracic echocardiogram. Exam performed in department. Left Ventricle Normal LV size. Left ventricular systolic function is normal. The estimated ejection fraction is 60 %. Stage 1 diastolic dysfunction. No regional wall motion abnormalities noted. Right Ventricle Normal RV size. Normal systolic function. Atria Normal left atrium. Normal right atrium. Mitral Valve Normal mitral valve. Tricuspid Valve Normal tricuspid valve. Mild (1+) tricuspid valve insufficiency. Pulmonary artery systolic pressure is 32 mmHg. Aortic Valve Normal aortic valve. Trisinus/trileaflet aortic valve. Pulmonic Valve Normal pulmonic valve. Great Vessels Normal aortic root. The pulmonary artery is normal size. Normal inferior vena cava. Pericardium/Pleural No pericardial effusion. MMode/2D Measurements & Calculations LVIDd: 4.8 cm IVSd: 1.2 cm Ao root diam: 3.9 cm LVIDs: 2.4 cm LVPWd: 1.1 cm RVDd: 3.9 cm FS: 49.1 % LAV(MOD-bp): 54.0 ml EDV(MOD-sp4): 102.1 ml EDV(MOD-sp2): 96.2 ml LAV(MOD-bp) Indexed: 24.9 ml/m2 ESV(MOD-sp4): 27.6 ml EF(MOD-sp2): 67.8 % LAV(MOD-sp2): 61.8 ml EF(MOD-sp4): 72.9 % LAV(MOD-sp4): 41.0 ml SV(MOD-sp4): 74.5 ml SV(MOD-sp2): 65.2 ml LA A4 area: 16.9 cm2 RA A4 area: 15.6 cm2 Doppler Measurements & Calculations MV E max junior: 77.4 cm/sec Lat Peak E' Junior: 10.1 cm/sec Med Peak E' Junior: 7.7 cm/sec MV A max junior: 87.2 cm/sec E/E' lat: 7.7 E/E' med: 10.1 MV E/A: 0.89 Ao V2 max: 159.1 cm/sec LV V1 max: 139.6 cm/sec PA V2 max: 165.5 cm/sec Ao max P.1 mmHg LV V1 max P.8 mmHg TR max junior: 259.0 cm/sec TR max P.3 mmHg Interpretation Summary Normal LV size. Left ventricular systolic function is normal. The estimated ejection fraction is 60 %. Stage 1 diastolic dysfunction. Mild (1+) tricuspid valve insufficiency. Ordering Physician: Spike Olivier Referring Physician: Nenita Knott M.D. Performed By: Fior Collazo RDCS
[2018-05-25] MEDS: Morphine 2 MG/ML Syringe IV (17:50)
[2018-05-25] MEDS: Famotidine 20 MG Tablet PO (21:08)
[2018-05-25] MEDS: Atorvastatin Calcium 80 MG Tablet PO (21:08)
[2018-05-26] VITALS (7 sets, daily range): BP systolic 120–124; BP diastolic 67–72; PULSE 56–63; RESP 16–18; TEMP 36.4–37; O2SAT 95–97
[2018-05-26] MEDS: Morphine 2 MG/ML Syringe IV (01:16)
--- NOTE | 2018-05-26 04:00 | EKG12_ITS ---
Test Reason : AM Blood Pressure : / mmHG Vent. Rate : 057 BPM Atrial Rate : 057 BPM P-R Int : 172 ms QRS Dur : 090 ms QT Int : 454 ms P-R-T Axes : 071 -12 031 degrees QTc Int : 441 ms Sinus bradycardia Otherwise normal ECG Confirmed by BASILIO RIOJAS, HERIBERTO ([id number]), editorial clerk MARY MCCARTY ([id number]) on 05/28/2018 10:13:25 AM Referred By: Spike Olivier Confirmed By:HERIBERTO RICHMOND MD
[2018-05-26 05:05] LABS: Absolute Lymphocyte Count 2.17 X10^3/ul (0.83-4.51); Absolute Neutrophil Count 5.1 X10^3/uL (2.0-7.7); Basophil# 0.05 X10^3/uL; Basophil% 0.6 % (0-1); Eosinophil# 0.11 X10^3/uL; Eosinophils% 1.3 % (0-5); Hematocrit 43.3 % (40-54); Hemoglobin 14.9 g/dl (13.0-16.5); Lymphocyte # 2.17 X10^3/ul (4.0); Lymphocyte % 26.4 % (19-41); Mean Corp Hgb Conc 34.4 g/gl (32-36); Mean Corpuscular Hgb 29.7 pg (27.0-32.0); Mean Corpuscular Volume 86.4 fL (80-94); Mean Platelet Vol. 10.2 fl (6.2-12.0); Monocyte# 0.72 X10^3/uL; Monocyte% 8.8 % (0-10); Neutrophil # 5.13 X10^3/uL (2.7-7.7); Neutrophil % 62.5 % (47-70); Platelet Count 263 K/mm3 (150-450); RBC Distribution Width CV 12.7 % (11.6-14.6); RBC Distribution Width SD 38.9 fl (35.1-43.9); Red Blood Count 5.01 M/mm3 (4.6-6.2); White Blood Count 8.2 K/mm3 (4.4-11.0)
[2018-05-26 05:18] LABS: POSITIVE COUNT NO; POSITIVE DIFFERENTIAL NO; POSITIVE MORPHOLOGY NO
[2018-05-26 05:23] LABS: Partial Thromboplast Time 28.2 Seconds (24.1-36.2); Prothrombin Time (Protime)PT. 13.6 SECONDS (11.7-14.9)
[2018-05-26 05:25] LABS: Anion Gap 7 (5-15); BUN 11 mg/dL (7-18); BUN/Creat Ratio 12.1 RATIO (10-20); Calcium,Total 8.6 mg/dL (8.5-10.1); Chloride 105 mmol/L (98-107); Creatinine, Serum 0.91 mg/dL (0.70-1.30); EST Glomerular Filtration Rate 89 mL/min (>60); Est Glom Filt Rate - Afr Amer 108 mL/min (>60); Estimated Creatinine Clearance 82.01 ml/min; Glucose 95 mg/dL (74-106); Potassium 3.6 mmol/L (3.5-5.1); Sodium Level 142 mmol/L (136-145)
[2018-05-26] MEDS: Lisinopril 20 MG Tablet PO (06:07)
[2018-05-26] MEDS: Famotidine 20 MG Tablet PO (06:07)
[2018-05-26] MEDS: Aspirin E.C. 81 MG Tablet PO (06:07)
--- NOTE | 2018-05-26 12:34 | STRESSREP ---
Stress Test Report Pharmacologic myocardial perfusion stress test. 62-year-old man with a history of chest pain and known coronary artery disease. Stress protocol: Resting EKG demonstrates sinus bradycardia with a rate of 59 bpm normal intervals are noted resting blood pressure 126/82 mmHg. 0.4 mg of regadenoson was infused per usual protocol followed by rapid intravenous saline flush injection continuous EKG monitoring was performed. The maximum heart rate attained was 88 bpm which was 56% of maximum predicted heart rate the maximum workload was 1 metabolic equivalent. At rest there were no ST or T wave changes noted suggest ischemia peak exercise no ST or T wave changes were noted suggest ischemia. The resting blood pressure 126/82 with a final blood pressure 120/70 mmHg. Myocardial perfusion protocol. 12.0 mCi of technetium 99m sestamibi was injected at rest. 0.4 mg of regadenoson was infused per usual protocol peak infusion 32.0 mCi of technetium 99m sestamibi was injected stress images were obtained stress and rest images were reconstructed and compared in the short axis vertical long horizontal long axis. Gated images were also obtained. Perfusion SPECT analysis: Review of the images demonstrate normal uptake of tracer noted in all areas of myocardium. The resting images similarly demonstrate normal uptake of tracer noted in all areas of the myocardium. No areas of reversibility are noted suggest ischemia no previous infarct is noted. Gated SPECT analysis: The gated ejection fraction is noted to be 64%. Conclusion: Normal pharmacologic myocardial perfusion stress test. Preserved ejection fraction.
[2018-05-26] MEDS: Chlorthalidone 50 MG Tablet 25 MG PO (12:58)
--- NOTE | 2018-05-26 13:29 | PCM.DC ---
- Discharge Diagnoses Current Active Problems: Current Active and Chronic Problems Chest pain (Acute) You will use the following diet at home:: Cardiac Call your doctor if you observe: Shortness of breath, Dizziness, Fainting spells, Chest pain Allergies/Adverse Reactions: Allergies Penicillins Allergy (Verified 05/24/18 17:35) Rash Medications to take at Discharge Atorvastatin Calcium [Lipitor] 80 mg PO QHS 08/01/14 Lisinopril [Zestril] 20 mg PO DAILY 08/01/14 Nitroglycerin [Nitrostat] 0.4 mg SUBLINGUAL Q5M PRN 08/01/14 Aspirin [Aspirin EC] 81 mg PO DAILY 10/10/16 Chlorthalidone 25 mg PO DAILY 10/10/16 Metoprolol Tartrate [Lopressor (beta odell)] 50 mg PO BID 10/10/16 Primary Care Physician: Nenita Knott MD [Primary Care Provider] - Please follow up with your Primary Care Physician in: 1 Week Test Results: Test results from this visit will be discussed in further detail at your follow-up appointment, if applicable. Please Follow Up With: Anthony Dawn MD When: 1-2 Weeks Proposed Discharge Date: 05/26/18
--- NOTE | 2018-05-26 13:39 | DCINST_ITS ---
- Discharge Diagnoses Current Active Problems: Current Active and Chronic Problems Chest pain (Acute) You will use the following diet at home:: Cardiac Call your doctor if you observe: Shortness of breath, Dizziness, Fainting spells, Chest pain Allergies/Adverse Reactions: Allergies Penicillins Allergy (Verified 05/24/18 17:35) Rash Medications to take at Discharge Atorvastatin Calcium [Lipitor] 80 mg PO QHS 08/01/14 Lisinopril [Zestril] 20 mg PO DAILY 08/01/14 Nitroglycerin [Nitrostat] 0.4 mg SUBLINGUAL Q5M PRN 08/01/14 Aspirin [Aspirin EC] 81 mg PO DAILY 10/10/16 Chlorthalidone 25 mg PO DAILY 10/10/16 Metoprolol Tartrate [Lopressor (beta odell)] 50 mg PO BID 10/10/16 Primary Care Physician: Nenita Knott MD [Primary Care Provider] - Please follow up with your Primary Care Physician in: 1 Week Test Results: Test results from this visit will be discussed in further detail at your follow- up appointment, if applicable. Please Follow Up With: Anthony Dawn MD When: 1-2 Weeks Proposed Discharge Date: 05/26/18
--- NOTE | 2018-05-26 13:42 | PCM.DC.SUM ---
<Alta Bear - Last Filed: 05/26/18 13:49> Discharge Date and Diagnosis Date of Admission: 05/25/18 Date of Discharge: 05/26/18 - Primary Discharge Diagnosis Active and Suspected Problems 1. Chest pain, ACS ruled out - Secondary Discharge Diagnosis Chronic Problems CVA (cerebral vascular accident) (Chronic) CAD (coronary artery disease) (Chronic) Hospital Course and Treatment Imaging Results: Diagnostic Data Chest X-Ray 05/25/18 12:36 IMPRESSION: Stable, nonacute portable x-ray examination of the chest. Electronically Signed: Blas Dee MD at 12:52 EST , Service support , Operations: None Procedures: 2-D Echocardiogram, Stress test Summary of Care Provided: The patient is a 62 year old M admitted 05/25/18 due to chest pain. He has a past medical history of CAD status post stent in September 2013, hemorrhagic CVA, hypertension, hyperlipidemia. Patient most recently underwent left heart cath in September 2017 which showed nonobstructive coronary arteries. EKG without ST-T changes. Troponin negative. Patient underwent nuclear stress test which was negative for ischemia. Echocardiogram showed an EF of 60%, stage I diastolic dysfunction, mild tricuspid valve insufficiency. ACS ruled out. Other chronic medical conditions as noted above are stable at this time. Patient previously followed with Dr. Andrews, [facility] cardiology and wishes to establish with [facility]. Follow-up with cardiology in 1-2 weeks. Follow-up with primary care physician in 1 week. General: Alert, Cooperative, No apparent distress HEENT: Atraumatic, PERRLA, EOMI, Normocephalic Oral: No Gingival or Mucosal Lesions/ Ulcerations Neck: Supple, No JVD, No Nodes Lungs: Normal air movement, clear to auscultation Cardiovascular: Regular rate, Regular Rhythm, Normal S1, Normal S2, No murmurs Abdomen: Bowel Sounds Present, Soft, Non Tender Extremities: No cyanosis, No edema Skin: No rashes, No breakdown Musculoskeletal: No Tenderness to Palpation of Joints or Extremities Lymphatic: No Cervical, Supraclavicular, or Inguinal Adenopathy Neurological: Cranial nerves II-XII grossly intact, Neuro grossly intact Psych/Mental Status: Normal Affect Patient seen and examined prior to discharge. Physical assessment as noted above. Patient is stable for discharge with follow up recommendations as noted above. This patient was seen by KATARINA Stroud under the supervision of Dr. Horton. - Physical Exam Vital Signs Temp Pulse Resp BP Pulse Ox 98.2 F 58 L 18 122/70 H 96 05/26/18 06:03 05/26/18 12:59 05/26/18 06:03 05/26/18 12:59 05/26/18 06:03 Oxygen Delivery Method Room Air Weight: 225 lb 15.581 oz Body Mass Index (BMI) 33.3 Finger Stick Blood Glucose 120 Intake and Output for Last 24 Hours 05/24/18 05/25/18 05/26/18 23:59 23:59 23:59 Intake Total 640 / 640 120 / 120 Balance 640 / 640 120 / 120 Laboratory Tests Past 24 Hrs 05/25/18 05/25/18 05/26/18 15:40 17:55 04:38 WBC 8.2 RBC 5.01 Hgb 14.9 Hct 43.3 MCV 86.4 MCH 29.7 MCHC 34.4 RDW 12.7 RDW Differential 38.9 Plt Count 263 MPV 10.2 Immature Gran % (Auto) 0.400 Neut % (Auto) 62.5 Lymph % (Auto) 26.4 [place] % (Auto) 8.8 Eos % (Auto) 1.3 Baso % (Auto) 0.6 Absolute Neuts (auto) 5.1 Absolute Lymphs (auto) 2.17 Total Counted Not Reportable PT INR APTT Sodium Potassium Chloride Carbon Dioxide Anion Gap BUN Creatinine Estim Creat Clear Calc Est GFR (MDRD) Af Amer Est GFR (MDRD) Non-Af BUN/Creatinine Ratio Glucose Calcium Troponin I < 0.015 < 0.015 05/26/18 05/26/18 04:38 04:38 WBC RBC Hgb Hct MCV MCH MCHC RDW RDW Differential Plt Count MPV Immature Gran % (Auto) Neut % (Auto) Lymph % (Auto) [place] % (Auto) Eos % (Auto) Baso % (Auto) Absolute Neuts (auto) Absolute Lymphs (auto) Total Counted PT 13.6 INR 1.0 APTT 28.2 Sodium 142 Potassium 3.6 Chloride 105 Carbon Dioxide 30.0 Anion Gap 7 BUN 11 Creatinine 0.91 Estim Creat Clear Calc 82.01 Est GFR (MDRD) Af Amer 108 Est GFR (MDRD) Non-Af 89 BUN/Creatinine Ratio 12.1 Glucose 95 Calcium 8.6 Troponin I Discharge Diet: Low fat/ Low Cholesterol Call your doctor if you observe: Shortness of breath, Dizziness, Fainting spells, Chest pain Home Medications: Medications to take at Discharge Atorvastatin Calcium [Lipitor] 80 mg PO QHS 08/01/14 Lisinopril [Zestril] 20 mg PO DAILY 08/01/14 Nitroglycerin [Nitrostat] 0.4 mg SUBLINGUAL Q5M PRN 08/01/14 Aspirin [Aspirin EC] 81 mg PO DAILY 10/10/16 Chlorthalidone 25 mg PO DAILY 10/10/16 Metoprolol Tartrate [Lopressor (beta odell)] 50 mg PO BID 10/10/16 Primary Care Physician: Nenita Knott MD [Primary Care Provider] - Please follow up with your Primary Care Physician in: 1 Week Please Follow Up With: Anthony Dawn MD When: 1-2 Weeks Disposition: Home Minutes spent on discharge:: 35 Patient Condition:: Stable Medical Necessity - Tobacco Use Smoking Status: Never smoker Meaningful Use Info Meaningful Use Diagnoses (Choose all that apply): None applicable <SolZuleyma E - Last Filed: 05/26/18 14:01> Discharge Date and Diagnosis - Secondary Discharge Diagnosis Chronic Problems CVA (cerebral vascular accident) (Chronic) CAD (coronary artery disease) (Chronic) Hospital Course and Treatment Imaging Results: 05/26/18 05:55 Nuclear Stress Test - Chemical [NM] Routine Summary of Care Provided: Hospitalist note Discharge summary above reviewed and I agree with above discharge and treatment plan. Patient was admitted for chest pain for evaluation. He had a history of CAD status post stents. His EKG revealed sinus bradycardia without evidence of acute ischemic changes. His troponin was negative x3. Chest x-ray showed no acute findings. He underwent nuclear stress test that revealed no evidence of stress-induced myocardial ischemia. ACS ruled out. 2D echocardiogram revealed normal LV size and function, ejection fraction of 60%, stage I diastolic dysfunction. Patient discharged home in a stable medical condition, continued on aspirin, statins, metoprolol and lisinopril, recommended follow-up with cardiology in 1-2 weeks, follow-up with PCP in 1 week. - Physical Exam General: Alert, Oriented x3, Cooperative, No apparent distress. HEENT: Atraumatic, PERRLA, EOMI. Neck: Supple, No JVD, Negative Carotid Bruits, Trachea Midline, Thyroid Normal. Lungs: Clear to auscultation, Normal air movement, No rhonchi, No wheeze, No rales. Cardiovascular: Regular rate, Regular Rhythm, Normal S1, Normal S2, PMI Normal. Abdomen: Bowel Sounds Present, Soft, Non Tender, Non-Distended, No Hepato-splenomegaly. Extremities: No clubbing, No cyanosis, No edema Skin: No rashes, No breakdown Neurological: Neuro grossly intact Vital Signs are stable. This note was generated with [employer] dictation software. It may contain incorrect words, spelling, and punctuation that were not noted in checking the note before signing. - Physical Exam Vital Signs Temp Pulse Resp BP Pulse Ox 98.2 F 58 L 18 122/70 H 96 05/26/18 06:03 05/26/18 12:59 05/26/18 06:03 05/26/18 12:59 05/26/18 06:03 Oxygen Delivery Method Room Air Weight: 225 lb 15.581 oz Body Mass Index (BMI) 33.3 Finger Stick Blood Glucose 120 Intake and Output for Last 24 Hours 05/24/18 05/25/18 05/26/18 23:59 23:59 23:59 Intake Total 640 / 640 120 / 120 Balance 640 / 640 120 / 120 Laboratory Tests Past 24 Hrs 05/25/18 05/25/18 05/26/18 15:40 17:55 04:38 WBC 8.2 RBC 5.01 Hgb 14.9 Hct 43.3 MCV 86.4 MCH 29.7 MCHC 34.4 RDW 12.7 RDW Differential 38.9 Plt Count 263 MPV 10.2 Immature Gran % (Auto) 0.400 Neut % (Auto) 62.5 Lymph % (Auto) 26.4 [place] % (Auto) 8.8 Eos % (Auto) 1.3 Baso % (Auto) 0.6 Absolute Neuts (auto) 5.1 Absolute Lymphs (auto) 2.17 Total Counted Not Reportable PT INR APTT Sodium Potassium Chloride Carbon Dioxide Anion Gap BUN Creatinine Estim Creat Clear Calc Est GFR (MDRD) Af Amer Est GFR (MDRD) Non-Af BUN/Creatinine Ratio Glucose Calcium Troponin I < 0.015 < 0.015 05/26/18 05/26/18 04:38 04:38 WBC RBC Hgb Hct MCV MCH MCHC RDW RDW Differential Plt Count MPV Immature Gran % (Auto) Neut % (Auto) Lymph % (Auto) [place] % (Auto) Eos % (Auto) Baso % (Auto) Absolute Neuts (auto) Absolute Lymphs (auto) Total Counted PT 13.6 INR 1.0 APTT 28.2 Sodium 142 Potassium 3.6 Chloride 105 Carbon Dioxide 30.0 Anion Gap 7 BUN 11 Creatinine 0.91 Estim Creat Clear Calc 82.01 Est GFR (MDRD) Af Amer 108 Est GFR (MDRD) Non-Af 89 BUN/Creatinine Ratio 12.1 Glucose 95 Calcium 8.6 Troponin I Disposition: Home Minutes spent on discharge:: 25 Patient Condition:: Stable Meaningful Use Info Meaningful Use Diagnoses (Choose all that apply): None applicable Code Visit OBSV E&M: 92806 Observation care discharge
--- NOTE | 2018-05-26 13:49 | DS.PCM_ITS ---
<Alta Bear - Last Filed: 05/26/18 13:49> Discharge Date and Diagnosis Date of Admission: 05/25/18 Date of Discharge: 05/26/18 - Primary Discharge Diagnosis Active and Suspected Problems 1. Chest pain, ACS ruled out - Secondary Discharge Diagnosis Chronic Problems CVA (cerebral vascular accident) (Chronic) CAD (coronary artery disease) (Chronic) Hospital Course and Treatment Imaging Results: Diagnostic Data Chest X-Ray 05/25/18 12:36 IMPRESSION: Stable, nonacute portable x-ray examination of the chest. Electronically Signed: Blas Dee MD at 12:52 EST , Service support , Operations: None Procedures: 2-D Echocardiogram, Stress test Summary of Care Provided: The patient is a 62 year old M admitted 05/25/18 due to chest pain. He has a past medical history of CAD status post stent in September 2013, hemorrhagic CVA, hypertension, hyperlipidemia. Patient most recently underwent left heart cath in September 2017 which showed nonobstructive coronary arteries. EKG without ST-T c hanges. Troponin negative. Patient underwent nuclear stress test which was negative for ischemia. Echocardiogram showed an EF of 60%, stage I diastolic dysfunction, mild tricuspid valve insufficiency. ACS ruled out. Other chronic medical conditions as noted above are stable at this time. Patient previously followed with Dr. Andrews, [facility] cardiology and wishes to establish with [facility]. Follow-up with cardiology in 1-2 weeks. Follow-up with primary care physician in 1 week. General: Alert, Cooperative, No apparent distress HEENT: Atraumatic, PERRLA, EOMI, Normocephalic Oral: No Gingival or Mucosal Lesions/ Ulcerations Neck: Supple, No JVD, No Nodes Lungs: Normal air movement, clear to auscultation Cardiovascular: Regular rate, Regular Rhythm, Normal S1, Normal S2, No murmurs Abdomen: Bowel Sounds Present, Soft, Non Tender Extremities: No cyanosis, No edema Skin: No rashes, No breakdown Musculoskeletal: No Tenderness to Palpation of Joints or Extremities Lymphatic: No Cervical, Supraclavicular, or Inguinal Adenopathy Neurological: Cranial nerves II-XII grossly intact, Neuro grossly intact Psych/Mental Status: Normal Affect Patient seen and examined prior to discharge. Physical assessment as noted above. Patient is stable for discharge with follow up recommendations as noted above. This patient was seen by KATARINA Stroud under the supervision of Dr. Horton. - Physical Exam Vital Signs Temp Pulse Resp BP Pulse Ox 98.2 F 58 L 18 122/70 H 96 05/26/18 06:03 05/26/18 12:59 05/26/18 06:03 05/26/18 12:59 05/26/18 06:03 Oxygen Delivery Method Room Air Weight: 225 lb 15.581 oz Body Mass Index (BMI) 33.3 Finger Stick Blood Glucose 120 Intake and Output for Last 24 Hours 05/24/18 05/25/18 05/26/18 23:59 23:59 23:59 Intake Total 640 / 640 120 / 120 Balance 640 / 640 120 / 120 Laboratory Tests Past 24 Hrs 05/25/18 05/25/18 05/26/18 15:40 17:55 04:38 WBC 8.2 RBC 5.01 Hgb 14.9 Hct 43.3 MCV 86.4 MCH 29.7 MCHC 34.4 RDW 12.7 RDW Differential 38.9 Plt Count 263 MPV 10.2 Immature Gran % (Auto) 0.400 Neut % (Auto) 62.5 Lymph % (Auto) 26.4 [place] % (Auto) 8.8 Eos % (Auto) 1.3 Baso % (Auto) 0.6 Absolute Neuts (auto) 5.1 Absolute Lymphs (auto) 2.17 Total Counted Not Reportable PT INR APTT Sodium Potassium Chloride Carbon Dioxide Anion Gap BUN Creatinine Estim Creat Clear Calc Est GFR (MDRD) Af Amer Est GFR (MDRD) Non-Af BUN/Creatinine Ratio Glucose Calcium Troponin I < 0.015 < 0.015 05/26/18 05/26/18 04:38 04:38 WBC RBC Hgb Hct MCV MCH MCHC RDW RDW Differential Plt Count MPV Immature Gran % (Auto) Neut % (Auto) Lymph % (Auto) [place] % (Auto) Eos % (Auto) Baso % (Auto) Absolute Neuts (auto) Absolute Lymphs (auto) Total Counted PT 13.6 INR 1.0 APTT 28.2 Sodium 142 Potassium 3.6 Chloride 105 Carbon Dioxide 30.0 Anion Gap 7 BUN 11 Creatinine 0.91 Estim Creat Clear Calc 82.01 Est GFR (MDRD) Af Amer 108 Est GFR (MDRD) Non-Af 89 BUN/Creatinine Ratio 12.1 Glucose 95 Calcium 8.6 Troponin I Discharge Diet: Low fat/ Low Cholesterol Call your doctor if you observe: Shortness of breath, Dizziness, Fainting spells, Chest pain Home Medications: Medications to take at Discharge Atorvastatin Calcium [Lipitor] 80 mg PO QHS 08/01/14 Lisinopril [Zestril] 20 mg PO DAILY 08/01/14 Nitroglycerin [Nitrostat] 0.4 mg SUBLINGUAL Q5M PRN 08/01/14 Aspirin [Aspirin EC] 81 mg PO DAILY 10/10/16 Chlorthalidone 25 mg PO DAILY 10/10/16 Metoprolol Tartrate [Lopressor (beta odell)] 50 mg PO BID 10/10/16 Primary Care Physician: Nenita Knott MD [Primary Care Provider] - Please follow up with your Primary Care Physician in: 1 Week Please Follow Up With: Anthony Dawn MD When: 1-2 Weeks Disposition: Home Minutes spent on discharge:: 35 Patient Condition:: Stable Medical Necessity - Tobacco Use Smoking Status: Never smoker Meaningful Use Info Meaningful Use Diagnoses (Choose all that apply): None applicable <Zuleyma Horton E - Last Filed: 05/26/18 14:01> Discharge Date and Diagnosis - Secondary Discharge Diagnosis Chronic Problems CVA (cerebral vascular accident) (Chronic) CAD (coronary artery disease) (Chronic) Hospital Course and Treatment Imaging Results: 05/26/18 05:55 Nuclear Stress Test - Chemical [NM] Routine Summary of Care Provided: Hospitalist note Discharge summary above reviewed and I agree with above discharge and treatment plan. Patient was admitted for chest pain for evaluation. He had a history of CAD status post stents. His EKG revealed sinus bradycardia without evidence of acute ischemic changes. His troponin was negative x3. Chest x-ray showed no acute findings. He underwent nuclear stress test that revealed no evidence of stress-induced myocardial ischemia. ACS ruled out. 2D echocardiogram revealed normal LV size and function, ejection fraction of 60%, stage I diastolic dysfunction. Patient discharged home in a stable medical condition, continued on aspirin, statins, metoprolol and lisinopril, recommended follow-up with cardiology in 1-2 weeks, follow-up with PCP in 1 week. - Physical Exam General: Alert, Oriented x3, Cooperative, No apparent distress. HEENT: Atraumatic, PERRLA, EOMI. Neck: Supple, No JVD, Negative Carotid Bruits, Trachea Midline, Thyroid Normal. Lungs: Clear to auscultation, Normal air movement, No rhonchi, No wheeze, No rales. Cardiovascular: Regular rate, Regular Rhythm, Normal S1, Normal S2, PMI Normal. Abdomen: Bowel Sounds Present, Soft, Non Tender, Non-Distended, No Hepato- splenomegaly. Extremities: No clubbing, No cyanosis, No edema Skin: No rashes, No breakdown Neurological: Neuro grossly intact Vital Signs are stable. This note was generated with [employer] dictation software. It may contain incorrect words, spelling, and punctuation that were not noted in checking the note before signing. - Physical Exam Vital Signs Temp Pulse Resp BP Pulse Ox 98.2 F 58 L 18 122/70 H 96 05/26/18 06:03 05/26/18 12:59 05/26/18 06:03 05/26/18 12:59 05/26/18 06:03 Oxygen Delivery Method Room Air Weight: 225 lb 15.581 oz Body Mass Index (BMI) 33.3 Finger Stick Blood Glucose 120 Intake and Output for Last 24 Hours 05/24/18 05/25/18 05/26/18 23:59 23:59 23:59 Intake Total 640 / 640 120 / 120 Balance 640 / 640 120 / 120 Laboratory Tests Past 24 Hrs 05/25/18 05/25/18 05/26/18 15:40 17:55 04:38 WBC 8.2 RBC 5.01 Hgb 14.9 Hct 43.3 MCV 86.4 MCH 29.7 MCHC 34.4 RDW 12.7 RDW Differential 38.9 Plt Count 263 MPV 10.2 Immature Gran % (Auto) 0.400 Neut % (Auto) 62.5 Lymph % (Auto) 26.4 [place] % (Auto) 8.8 Eos % (Auto) 1.3 Baso % (Auto) 0.6 Absolute Neuts (auto) 5.1 Absolute Lymphs (auto) 2.17 Total Counted Not Reportable PT INR APTT Sodium Potassium Chloride Carbon Dioxide Anion Gap BUN Creatinine Estim Creat Clear Calc Est GFR (MDRD) Af Amer Est GFR (MDRD) Non-Af BUN/Creatinine Ratio Glucose Calcium Troponin I < 0.015 < 0.015 05/26/18 05/26/18 04:38 04:38 WBC RBC Hgb Hct MCV MCH MCHC RDW RDW Differential Plt Count MPV Immature Gran % (Auto) Neut % (Auto) Lymph % (Auto) [place] % (Auto) Eos % (Auto) Baso % (Auto) Absolute Neuts (auto) Absolute Lymphs (auto) Total Counted PT 13.6 INR 1.0 APTT 28.2 Sodium 142 Potassium 3.6 Chloride 105 Carbon Dioxide 30.0 Anion Gap 7 BUN 11 Creatinine 0.91 Estim Creat Clear Calc 82.01 Est GFR (MDRD) Af Amer 108 Est GFR (MDRD) Non-Af 89 BUN/Creatinine Ratio 12.1 Glucose 95 Calcium 8.6 Troponin I Disposition: Home Minutes spent on discharge:: 25 Patient Condition:: Stable Meaningful Use Info Meaningful Use Diagnoses (Choose all that apply): None applicable Code Visit OBSV E&M: 17578 Observation care discharge
--- NOTE | 2018-05-26 14:46 | PHA.DC.MR ---
Pharmacy Service has performed discharge medication reconciliation for this patient. No new medications added this admission, review of home medications the patient was on prior to admission. The patient's discharge medication list was reviewed for discrepancies and discrepancies were resolved. Home Medications Atorvastatin Calcium [Lipitor] 80 mg PO QHS 08/01/14 Lisinopril [Zestril] 20 mg PO DAILY 08/01/14 Nitroglycerin [Nitrostat] 0.4 mg SUBLINGUAL Q5M PRN 08/01/14 Aspirin [Aspirin EC] 81 mg PO DAILY 10/10/16 Chlorthalidone 25 mg PO DAILY 10/10/16 Metoprolol Tartrate [Lopressor (beta odell)] 50 mg PO BID 10/10/16
== END 2018-05-26 13:41 | disposition home or self-care (01) ==
LOC: ED 14:06 → PCU 05-26 06:15
PROVIDERS: Admitting Provider Internal Medicine; Emergency Provider Emergency Medicine; Family Provider Internal Medicine; PCP Internal Medicine; Referring Provider Internal Medicine; Visit Provider Hospitalist
DX: R07.89 Other chest pain (principal); R06.02 Shortness of breath; R42 Dizziness and giddiness; I10 Essential (primary) hypertension; R00.1 Bradycardia, unspecified; E78.5 Hyperlipidemia, unspecified; I25.10 Atherosclerotic heart disease of native coronary artery without angina pectoris; Z86.73 Personal history of transient ischemic attack (TIA), and cerebral infarction without residual deficits; Z82.49 Family history of ischemic heart disease and other diseases of the circulatory system; Z95.5 Presence of coronary angioplasty implant and graft; Z79.899 Other long term (current) drug therapy; Z79.82 Long term (current) use of aspirin
CPT/HCPCS: 36415; 71045; 78452; 80048; 84484; 85025; 85610; 85730; 93005; 93017; 93306; 96374; 96375; 96376; 99218; 99285; A9500; A4216; G0378; J2405; J2785

== ENCOUNTER 2018-11-24 18:10 | Emergency (ER) | payer MEDICARE, OTHER, SELFPAY ==
[2018-06-05 08:55] VITALS: BMI 33.7
[2018-11-24 18:11] VITALS: BP 137/90; PULSE 69; RESP 22; TEMP 36.4; O2SAT 97; BMI 34.4
--- NOTE | 2018-11-24 18:29 | EKG12_ITS ---
Test Reason : CP Blood Pressure : / mmHG Vent. Rate : 069 BPM Atrial Rate : 069 BPM P-R Int : 172 ms QRS Dur : 086 ms QT Int : 440 ms P-R-T Axes : 011 -27 019 degrees QTc Int : 471 ms Normal sinus rhythm Nonspecific ST abnormality Abnormal ECG Confirmed by BASILIO RIOJAS, HERIBERTO ([id number]), index editor KARL DEMPSEY ([id number]) on 11/27/2018 1:01:17 PM Referred By: JORGE Confirmed By:HERIBERTO RICHMOND MD
--- NOTE | 2018-11-24 18:29 | CT_ITS ---
STUDY: CTA CHEST REASON FOR EXAM: Male, 63 years old. Chest pressure RADIATION DOSAGE (If Supplied By Facility): CTDIvol = ( 14.34 ) mGy, DLP = ( 713.57 ) mGycm TECHNIQUE: The examination was performed with the intravenous administration of 100ML IV Isovue 370. Post-processing of the angiographic images was performed, with multiplanar reformation and 3D reconstruction. Individualized dose optimization techniques were used for this CT. COMPARISON: Chest radiograph November 24, 2018 FINDINGS: There is less than optimal enhancement of the pulmonary arteries due to suboptimal bolus technique however there is no definitive evidence for intraluminal clot. If strong clinical suspicion for pulmonary embolus would recommend ventilation/perfusion study and Doppler sonogram of the venous system of lower extremities for further evaluation. Mild atherosclerotic changes of the aorta without evidence for aneurysm There is no demonstrated aortic dissection. Heart appears to be normal size. There is a coronary artery stent present. Normal mediastinum. Normal hilar regions. 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 Normal visualized trachea and bronchi. The lungs are well expanded. There is mild left lower lobe atelectasis. Normal pleura. Normal chest wall structures. Dorsal spine demonstrates degenerative changes Old compression fracture of T12 status post kyphoplasty Gallbladder has been removed surgically.. CT/CTA Chest W/WO Contrast IMPRESSION: Less than optimal opacification of the pulmonary arteries without definitive evidence for pulmonary embolus Mild left lower lobe atelectasis Electronically Signed: Memo Curry MD at 19:30 EDT , Service support ,
--- NOTE | 2018-11-24 18:30 | ED.DCSUM_ITS ---
History of Present Illness Chief Complaint: Chest Pain Informant: Patient Onset: Days Current Severity: Mild Maximum Severity: Moderate Narrative: Patient presents with a couple day history of chest pain. He describes chest pressure for the past 2 days. He has been working out regularly and thought he strained a muscle. He is still been able to do his normal physical activities without significant change. Today while getting ready to go to dinner he had some intermittent sharp stabbing pain in the sternal area. He denies shortness of breath. Patient does have history of prior PA with one cardiac stent. He w as also noted to have aortic root dilatation on echocardiogram several years ago. Patient did have a brain bleed in January of last year. His last stress test was in May of this year and normal. - Past Medical History (1) Aortic dilatation Status: Chronic Comment: Aortic Root: Echo 2017: 4 cm; (2) Atherosclerosis of coronary artery of [place] heart without angina pectoris Status: Chronic Comment: [id number]-[id number]-[id number] D1 w/ 2.5 x 14 mm Resolute Integrity Stent 09/17/2013 (3) CVA (cerebral vascular accident) Status: Chronic Comment: Right parietal ICH in January 2018 (4) Essential hypertension Status: Chronic (5) Hyperlipemia, mixed Status: Chronic (6) History of coronary artery stent placement Status: Resolved Comment: GOJ-VLN-Lhcw D1 w/ 2.5 x 14 mm Resolute Integrity Stent 2013 Past Medical History - Allergies and Home Meds Allergies/Adverse Reactions: Allergies Penicillins Allergy (Verified 11/24/18 18:10) Rash Primary Care Physician: Nenita Knott MD [Primary Care Provider] - Doctors: Dr. Lennon Prior records reviewed: Yes Past Medical History: - - Reviewed Surgical History: cholecystectomy, - - knee surgery, deviated septum Lives: Spouse/ Significant Other Smoking Status: Never smoker - Family History Maternal Family History: Family History (Last Updated 06/10/18 @ 08:33 by KATARINA Noguera) Brother Colon cancer Diabetes Cancer Father Cancer Brother Cancer Mother Cancer Thyroid disorder Family History: Reports: Cancer Paternal Family History: Family History (Last Updated 06/10/18 @ 08:33 by KATARINA Noguera) Brother Colon cancer Diabetes Cancer Father Cancer Brother Cancer Mother Cancer Thyroid disorder Family History: Reports: Cancer Sibling Family History: Family History (Last Updated 06/10/18 @ 08:33 by Pablo Fierro NP-C) Brother Colon cancer Diabetes Cancer Father Cancer Brother Cancer Mother Cancer Thyroid disorder Family History: Reports: Cancer Review of Systems General: Denies: Chills, Fever Eyes: Denies: Visual changes - bilaterally ENT: Denies: Bilateral ear pain Cardiovascular: Reports: Chest pain. Denies: Palpitations, Heart racing Respiratory: Denies: Dyspnea, Cough Gastrointestinal: Denies: Abdominal pain, Nausea, Vomiting Genitourinary: Denies: Dysuria Musculoskeletal: Denies: Neck pain, Back pain Skin: Denies: Rash Neurological: Denies: Headache Hematologic: Denies: Easy bruising Allergy: Denies: Uticaria Physical Exam Vital Signs/Narrative: Vital Signs Temp Pulse Resp BP Pulse Ox 11/24/18 18:11 97.5 F L 69 22 H 137/90 H 97 Inital Vital Signs reviewed: Yes General: Well nourished, Well developed Head: Normocephalic Eyes: Perrl, EOMI ENT: Moist mucous membranes Neck: Supple Cardiovascular: Regular rate, Regular rhythm Respiratory: No distress, CTA bilaterally, Chest tenderness - Reproducible tenderness around the sternum. Abdomen: Soft, Nontender Back: Nontender Extremities: Nontender Skin: Normal color, No rash Neurological: Alert, Oriented x3 Psychological: Normal affect Diagnostic/Tx/Re-eval Impressions Chest CTA 11/24/18 18:29 IMPRESSION: Less than optimal opacification of the pulmonary arteries without definitive evidence for pulmonary embolus Mild left lower lobe atelectasis Electronically Signed: Memo Curry MD at 19:30 EDT , Service support , Chest X-Ray 11/24/18 18:30 IMPRESSION: Mild discoid atelectasis in left lower lobe Electronically Signed: Memo Curry MD at 18:49 EDT , Service support , 11/24/18 18:29 CTA Chest W/WO Contrast [CT] Stat 11/24/18 18:30 Chest 1 View (Portable) [RAD] Stat Laboratory Results 11/24/18 11/24/18 18:20 18:20 WBC 8.6 RBC 5.05 Hgb 15.1 Hct 42.8 MCV 84.8 MCH 29.9 MCHC 35.3 RDW Std Deviation 38.5 RDW Coeff of Angelica 12.7 Plt Count 261 MPV 10.0 Immature Gran % (Auto) 0.500 Neut % (Auto) 66.7 Lymph % (Auto) 23.0 [place] % (Auto) 8.2 Eos % (Auto) 0.8 Baso % (Auto) 0.8 Absolute Neuts (auto) 5.7 Absolute Lymphs (auto) 1.97 Nucleated RBC % 0 Sodium 139 Potassium 3.6 Chloride 104 Carbon Dioxide 30.0 Anion Gap 5 BUN 9 Creatinine 1.10 Estim Creat Clear Calc 66.95 Est GFR (MDRD) Af Amer 86 Est GFR (MDRD) Non-Af 71 BUN/Creatinine Ratio 8.2 L Glucose 123 H Calcium 9.1 Troponin I < 0.015 - EKG Initial EKG Interpretation: Sinus Rhythm - Sinus at 69. Nonspecific ST change laterally, unchanged when compared to prior. - Medical Decision Making Patient presents with reproducible chest wall tenderness. Does have significant cardiac history. Patient did have a few episodes of the sharp stabbing pain wh ile he was here with no change noted on audio video tech. CTA of the chest is unremarkable. I measured the aortic root and appears to be 4 cm, consistent with the prior echocardiogram from 2 years ago. Patient was discussed with Dr. Lennon. He will see the patient in the office on as scheduled. Patient and are comfortable with this plan. ED Disposition - Plan for ED Patient: Disposition: Home or Assisted Living Diagnosis: Chest wall pain Instructions: CHEST WALL PAIN, Costochondritis Prescriptions: Prednisone [Deltasone] 40 mg PO DAILY #6 tablet Referrals: Navin Lennon MD [STAFF PHYSICIAN] - Keep Sarah appointment
--- NOTE | 2018-11-24 18:30 | RAD_ITS ---
STUDY: X-RAY CHEST REASON FOR EXAM: Male, 63 years old. Chest. Pain TECHNIQUE: AP portable COMPARISON: May 252018 FINDINGS: There is very mild discoid atelectasis at left base. Right lung is clear. There is no demonstrated pleural abnormality. Borderline cardiomegaly Normal mediastinum and esther. Normal visualized pulmonary arteries. Normal visualized aortic arch and descending thoracic aorta. Normal visualized thoracic spine. Normal visualized ribs, clavicles, and shoulders. There is no demonstrated abnormality of the visualized soft tissue structures of the upper abdomen. RAD/Chest 1 View (Portable) IMPRESSION: Mild discoid atelectasis in left lower lobe Electronically Signed: Memo Curry MD at 18:49 EDT , Service support ,
[2018-11-24 18:36] LABS: Absolute Lymphocyte Count 1.97 X10^3/uL (0.83-4.51); Absolute Neutrophil Count 5.7 X10^3/uL (2.0-7.7); Basophil# 0.07 X10^3/uL; Basophil% 0.8 % (0-1); Eosinophil# 0.07 X10^3/uL; Eosinophils% 0.8 % (0-5); Hematocrit 42.8 % (40-54); Hemoglobin 15.1 g/dL (13.0-16.5); Lymphocyte # 1.97 X10^3/ul (4.0); Mean Corp Hgb Conc 35.3 g/dL (32-36); Mean Corpuscular Hgb 29.9 pg (27.0-32.0); Mean Corpuscular Volume 84.8 fL (80-94); Monocyte% 8.2 % (0-10); NRBC Flagged by Analyzer 0 % (0-5); Neutrophil # 5.72 X10^3/uL (2.7-7.7); Neutrophil % 66.7 % (47-70); Platelet Count 261 K/mm3 (150-450); RBC Distribution Width CV 12.7 % (11.6-14.6); RBC Distribution Width SD 38.5 fl (35.1-43.9); Red Blood Count 5.05 M/mm3 (4.6-6.2); White Blood Count 8.6 K/mm3 (4.4-11.0)
[2018-11-24] MEDS: 0.9% Normal Saline 1,000 ML 150 ML IV (18:44)
[2018-11-24] MEDS: Aspirin 81 MG TAB.CHEW 243 MG PO (18:44)
[2018-11-24 18:49] LABS: Anion Gap 5 (5-15); BUN 9 mg/dL (7-18); BUN/Creat Ratio 8.2 RATIO (10-20); Calcium,Total 9.1 mg/dL (8.5-10.1); Chloride 104 mmol/L (98-107); EST Glomerular Filtration Rate 71 mL/min (>60); Est Glom Filt Rate - Afr Amer 86 mL/min (>60); Estimated Creatinine Clearance 66.95 ml/min; Glucose 123 mg/dL (74-106); Potassium 3.6 mmol/L (3.5-5.1); Sodium Level 139 mmol/L (136-145)
[2018-11-24 19:26] VITALS: BP 119/69; PULSE 71; RESP 18; O2SAT 94
--- NOTE | 2018-11-24 20:00 | ED.RN ---
PT RINGS CALL LIGHT TO REPORT SUDDEN JOLT OF CHEST PAIN. PT REPORTS PAIN IS NO LONGER THERE. PT REMAINS ON SALESPERSON SHOES, NO EKG CHANGES NOTED. DR. DAVIS INFORMED. PT RESTING COMFORTABLY. AT BEDSIDE. WILL CONTINUE TO MONITOR.
[2018-11-24 20:08] VITALS: BP 123/71; PULSE 65; RESP 16; O2SAT 96
[2018-11-24 21:17] VITALS: BP 121/72; PULSE 62; RESP 18; O2SAT 95
[2018-11-24 22:01] VITALS: BP 130/66; PULSE 83; RESP 18; O2SAT 98
== END 2018-11-24 22:02 | disposition home or self-care (01) ==
PROVIDERS: Emergency Provider Emergency Medicine; Family Provider Internal Medicine; PCP Internal Medicine
DX: R07.89 Other chest pain (principal); I25.10 Atherosclerotic heart disease of native coronary artery without angina pectoris; I10 Essential (primary) hypertension; E78.2 Mixed hyperlipidemia; Z95.5 Presence of coronary angioplasty implant and graft; Z90.49 Acquired absence of other specified parts of digestive tract; Z88.0 Allergy status to penicillin
CPT/HCPCS: 71045; 71275; 80048; 84484; 85025; 93005; 99285; J7030; Q9967; A4216

== ENCOUNTER → 2019-02-09 11:29 | Outpatient (CLI) | payer MEDICARE, OTHER, SELFPAY ==
[2019-01-23 13:59] VITALS: BMI 34.7
[2019-02-09 12:21] LABS: Anion Gap 5 (5-15); BUN 15 mg/dL (7-18); BUN/Creat Ratio 13.3 RATIO (10-20); Calcium,Total 9.1 mg/dL (8.5-10.1); Chloride 107 mmol/L (98-107); Creatinine, Serum 1.13 mg/dL (0.70-1.30); EST Glomerular Filtration Rate 69 mL/min (>60); Est Glom Filt Rate - Afr Amer 84 mL/min (>60); Glucose 119 mg/dL (74-106); Sodium Level 140 mmol/L (136-145)
== END ==
PROVIDERS: Family Provider Internal Medicine; PCP Internal Medicine; Referring Provider Nurse Practitioner Family; Visit Provider Nurse Practitioner Family
DX: I10 Essential (primary) hypertension (principal)
CPT/HCPCS: 36415; 80048

== ENCOUNTER 2019-04-15 18:40 | Emergency (ER) | payer MEDICARE, OTHER, SELFPAY ==
[2019-01-23 13:59] VITALS: BMI 34.7
[2019-04-15 18:41] VITALS: BP 145/90; PULSE 93; RESP 17; TEMP 36.4; O2SAT 95; BMI 33.2
--- NOTE | 2019-04-15 18:57 | CT_ITS ---
STUDY: CT ABDOMEN AND PELVIS WITHOUT CONTRAST REASON FOR EXAM: Male, 63 years old. Right flank pain. TECHNIQUE: Transaxial images were obtained from the dome of the diaphragm to the symphysis pubis without oral contrast, and without intravenous contrast. Sagittal and coronal images were reconstructed. Individualized dose optimization techniques were used for this CT. COMPARISON: 06/21/2010 MRI abdomen. FINDINGS: Partially visualized lower chest: Subsegmental dependent atelectasis bilaterally. Liver: No concerning lesions. Gallbladder and biliary tree: Status post cholecystectomy. No biliary ductal dilation. Pancreas: No pancreatic lesions or inflammation. Spleen: Normal size, no splenic lesions. Adrenal glands: No concerning masses. Kidneys and ureters: Punctate 2 mm nonobstructing stone lower pole left kidney. No other renal stones. No hydronephrosis. Normal renal size and position. Mild bilateral perinephric stranding chronic and unchanged. Bowel: Appendix not identified. No evidence of appendicitis. No obstruction or inflammation of the bowel. Urinary bladder: No stones or wall thickening. Reproductive:Normal size prostate. Vascular: No abdominal aortic aneurysm. Retroperitoneal and peritoneal spaces: No ascites or free air. No retroperitoneal lesions. Osseous: No acute osseous abnormality. Mild chronic compression T12 vertebral body with prior vertebroplasty at this level. Abdominal and pelvic wall: Small left inguinal hernia containing fat but no bowel. No acute findings. CT/Abdomen/Pelvis without Cont IMPRESSION: No acute findings. Punctate nonobstructing stone lower pole left kidney. Small left and one hernia containing fat but no bowel. Electronically Signed: Seth Guerrero, at 20:14 EST Tel , Service support ,
--- NOTE | 2019-04-15 19:00 | ED.VIS.GEN ---
History of Present Illness Chief Complaint: Flank Pain Detail of Chief Complaint: Right flank pain Informant: Patient, Family Onset: Today Context: Gradual Onset Timing: Waxes and wanes Current Severity: Severe Maximum Severity: Severe Narrative: Patient presents with significant pain to the right flank. He states he started getting pain this morning and it is progressed throughout the day. He has not noted any blood in his urine. He does have a history of kidney stones and states this feels similar. - Past Medical History (1) Kidney stone Status: Chronic (2) Aortic dilatation Status: Chronic Comment: Aortic Root: Echo 2017: 4 cm; (3) Atherosclerosis of coronary artery of [place] heart without angina pectoris Status: Chronic Comment: [id number]-Lvny D1 w/ 2.5 x 14 mm Resolute Integrity Stent 09/17/2013 (4) CVA (cerebral vascular accident) Status: Chronic Comment: Right parietal ICH in January 2018 (5) Essential hypertension Status: Chronic (6) Hyperlipemia, mixed Status: Chronic (7) History of coronary artery stent placement Status: Resolved Comment: [id number] D1 w/ 2.5 x 14 mm Resolute Integrity Stent 2013 Past Medical History - Allergies and Home Meds Allergies/Adverse Reactions: Allergies acetaminophen [From Darvocet-N 100] Allergy (Verified 04/15/19 18:43) Rash fenoprofen [From Nalfon] Allergy (Verified 04/15/19 18:43) Itching Penicillins Allergy (Verified 01/23/19 13:59) Rash propoxyphene [From Darvocet-N 100] Allergy (Verified 04/15/19 18:43) Rash Primary Care Physician: Nenita Knott MD [Primary Care Provider] - Prior records reviewed: Yes Surgical History: cholecystectomy, - - knee surgery, deviated septum Lives: Spouse/ Significant Other Smoking Status: Never smoker - Family History Maternal Family History: Family History (Last Reviewed 11/27/18 @ 15:53 by Navin Lennon MD) Brother Colon cancer Diabetes Cancer Father Cancer Brother Cancer Mother Cancer Thyroid disorder Family History: Reports: Cancer Paternal Family History: Family History (Last Reviewed 11/27/18 @ 15:53 by Navin Lennon MD) Brother Colon cancer Diabetes Cancer Father Cancer Brother Cancer Mother Cancer Thyroid disorder Family History: Reports: Cancer Sibling Family History: Family History (Last Reviewed 11/27/18 @ 15:53 by Navin Lennon MD) Brother Colon cancer Diabetes Cancer Father Cancer Brother Cancer Mother Cancer Thyroid disorder Family History: Reports: Cancer Review of Systems General: Denies: Chills, Fever Eyes: Denies: Visual changes - bilaterally ENT: Denies: Bilateral ear pain Cardiovascular: Denies: Chest pain Respiratory: Denies: Dyspnea, Cough Gastrointestinal: Reports: Abdominal pain - Right flank, Nausea. Denies: Vomiting Genitourinary: Denies: Dysuria, Hematuria Musculoskeletal: Reports: Back pain - Right flank Neurological: Denies: Headache Endocrine: Denies: Polyuria, Polydipsia Allergy: Denies: Uticaria Physical Exam Vital Signs/Narrative: Vital Signs Temp Pulse Resp BP Pulse Ox 04/15/19 18:41 97.6 F L 93 17 145/90 H 95 Inital Vital Signs reviewed: Yes General: Well nourished, Well developed Head: Normocephalic ENT: Moist mucous membranes Neck: Supple Cardiovascular: Regular rate, Regular rhythm Respiratory: No distress, CTA bilaterally Abdomen: Soft, Nontender, Hypoactive bowel sounds Back: CVA tenderness Extremities: Nontender Skin: Normal color Neurological: Alert, Oriented x3 Psychological: - - Anxious Diagnostic/Tx/Re-eval Impressions Abdomen/Pelvis CT 04/15/19 18:57 IMPRESSION: No acute findings. Punctate nonobstructing stone lower pole left kidney. Small left and one hernia containing fat but no bowel. Electronically Signed: Seth Cesar, at 20:14 EST Tel , Service support , 04/15/19 18:57 Abdomen/Pelvis without Cont [CT] Stat Laboratory Results 04/15/19 04/15/19 04/15/19 19:20 19:20 20:35 WBC 11.5 H RBC 5.19 Hgb 15.5 Hct 43.1 MCV 83.0 MCH 29.9 MCHC 36.0 RDW Std Deviation 36.2 RDW Coeff of Angelica 12.0 Plt Count 239 MPV 10.1 Immature Gran % (Auto) 0.500 Neut % (Auto) 79.0 H Lymph % (Auto) 13.0 L [place] % (Auto) 6.9 Eos % (Auto) 0.3 Baso % (Auto) 0.3 Absolute Neuts (auto) 9.1 H Absolute Lymphs (auto) 1.50 Nucleated RBC % 0 Sodium 140 Potassium 3.8 Chloride 107 Carbon Dioxide 27.0 Anion Gap 6 BUN 12 Creatinine 1.20 Estim Creat Clear Calc 61.37 Est GFR (MDRD) Af Amer 78 Est GFR (MDRD) Non-Af 65 BUN/Creatinine Ratio 10.0 Glucose 172 H Calcium 9.0 Urine Color Yellow Urine Clarity Clear Urine pH 6.0 Ur Specific [place] 1.020 Urine Protein 30 H Urine Glucose (UA) Normal Urine Ketones 5 H Urine Occult Blood Negative Urine Nitrite Negative Urine Bilirubin 1 H Urine Urobilinogen 1 H Ur Leukocyte Esterase 25 H Urine RBC 0 SEEN Urine WBC 0-5 SEEN Ur Squamous Epith Cells 0 SEEN Urine Bacteria RARE Urine Mucus 2+ - Medical Decision Making Patient was given morphine, Zofran, Toradol, IV fluids. On repeat evaluation he feels significantly improved. There is no evidence of stone on his CT scan. Patient states the pain he was experiencing was exactly like his prior stones. My suspicion is either has a noncalcified small stone or he recently passed a stone and is still having some spasm. Prescription for [place] will be sent to the pharmacy for him along with Zofran. ED Disposition - Plan for ED Patient: Disposition: Home or Assisted Living Diagnosis: Flank pain Instructions: FLANK PAIN, Uncertain Cause Prescriptions: Hydrocodone Bitart/Apap 5-325 [[place] 5MG-325MG] 1 tablet PO Q6H PRN PRN 3 Days #10 tablet PRN Reason: Pain Transmission Status: Sent to [facility] Ondansetron [Zofran Odt] 4 mg PO Q8H PRN PRN #10 tab PRN Reason: Nausea Transmission Status: Pending to [facility] #[facility] Referrals: Nenita Knott MD [Primary Care Provider] - Clifton Hamilton MD [STAFF PHYSICIAN] - As Needed
[2019-04-15] MEDS: Ketorolac 15 MG/ML Vial IV (19:21)
[2019-04-15] MEDS: Ondansetron 4 MG/2 ML Vial IV (19:21)
[2019-04-15] MEDS: Morphine 4 MG/ML Syringe IV (19:22)
[2019-04-15] MEDS: 0.9% Normal Saline 1,000 ML 150 ML IV (19:22)
[2019-04-15 19:32] LABS: Absolute Neutrophil Count 9.1 X10^3/uL (2.0-7.7); Basophil# 0.03 X10^3/uL; Basophil% 0.3 % (0-1); Eosinophil# 0.03 X10^3/uL; Eosinophils% 0.3 % (0-5); Hematocrit 43.1 % (40-54); Hemoglobin 15.5 g/dL (13.0-16.5); Mean Corpuscular Hgb 29.9 pg (27.0-32.0); Mean Platelet Vol. 10.1 fl (6.2-12.0); Monocyte% 6.9 % (0-10); NRBC Flagged by Analyzer 0 % (0-5); Neutrophil # 9.11 X10^3/uL (2.7-7.7); Platelet Count 239 K/mm3 (150-450); RBC Distribution Width SD 36.2 fl (35.1-43.9); Red Blood Count 5.19 M/mm3 (4.6-6.2); White Blood Count 11.5 K/mm3 (4.4-11.0)
[2019-04-15 19:51] LABS: Anion Gap 6 (5-15); BUN 12 mg/dL (7-18); Chloride 107 mmol/L (98-107); EST Glomerular Filtration Rate 65 mL/min (>60); Est Glom Filt Rate - Afr Amer 78 mL/min (>60); Estimated Creatinine Clearance 61.37 ml/min; Glucose 172 mg/dL (74-106); Potassium 3.8 mmol/L (3.5-5.1); Sodium Level 140 mmol/L (136-145)
[2019-04-15 20:43] LABS: Red Blood Cells-Urine 0 SEEN /hpf (0-5)
[2019-04-15 20:48] LABS: Color, Urine Yellow (Yellow); Glucose, Dipstick Normal (Normal); Ketone-Dipstick 5 mg/dl (Negative); Leukocyte Esterase-Dipstick 25 /ul (Negative); Nitrite-Dipstick Negative (Negative); Occult Blood-Urine Negative /ul (Negative); Protein-Dipstick 30 mg/dl (Negative); Urine Clarity Clear (Clear); Urine Urobilinogen 1 mg/dl (Normal)
[2019-04-15 20:51] LABS: Urine Bilirubin Dipstick 1 mg/dL (Negative)
[2019-04-15 20:57] LABS: Bacteria RARE /hpf (None Seen); Mucous, Urine 2+ /hpf (<or=2+); Squamous Epithelial Cells - UA 0 SEEN /hpf (0-5); White Blood Cells 0-5 SEEN /hpf (0-5)
[2019-04-15 21:11] VITALS: BP 134/79; PULSE 89; RESP 18; O2SAT 98
--- NOTE | 2019-04-15 21:12 | ED.RN ---
THIS NURSE REVIEWED D/C INSTRUCTIONS WITH PT. PT VERBALIZED UNDERSTANDING OF INSTRUCTIONS. IV D/C. IV CATHETER INTACT. PT TOLERATED WELL. PT DENIES FURTHER NEEDS OR QUESTIONS AT THIS TIME.
== END 2019-04-15 21:13 | disposition home or self-care (01) ==
PROVIDERS: Emergency Provider Emergency Medicine; Family Provider Internal Medicine; PCP Internal Medicine
DX: R10.9 Unspecified abdominal pain (principal); E78.2 Mixed hyperlipidemia; I10 Essential (primary) hypertension; I25.10 Atherosclerotic heart disease of native coronary artery without angina pectoris; N20.0 Calculus of kidney; Z86.73 Personal history of transient ischemic attack (TIA), and cerebral infarction without residual deficits; Z87.442 Personal history of urinary calculi; Z88.0 Allergy status to penicillin; Z90.49 Acquired absence of other specified parts of digestive tract; Z95.5 Presence of coronary angioplasty implant and graft
CPT/HCPCS: 74176; 80048; 81001; 85025; 96361; 96374; 96375; 99283; J7030; J2405

== ENCOUNTER 2019-04-16 07:03 | Observation (INO) | payer MEDICARE, OTHER, SELFPAY ==
[2019-04-15 18:41] VITALS: BMI 33.2
[2019-04-16] VITALS (16 sets, daily range): BP systolic 131–159; BP diastolic 69–92; PULSE 66–99; RESP 16–24; TEMP 36.6–38; O2SAT 90–99; BMI 35.1; BMI 34.8
--- NOTE | 2019-04-16 07:34 | CT_ITS ---
STUDY: CT ABDOMEN AND PELVIS WITH CONTRAST REASON FOR EXAM: Male, 63 years old. BACK PAIN, WORSE WITH MOVEMENT, DIAPHORETIC RADIATION DOSAGE (If Supplied By Facility): CTDIvol = ( 19.04 ) mGy, DLP = ( 1625.76 ) mGycm TECHNIQUE: Transaxial images were obtained from the dome of the diaphragm to the symphysis pubis without oral contrast. 100 CC ISOVUE 370 was administered. Sagittal and coronal images were reconstructed. Individualized dose optimization techniques were used for this CT. COMPARISON: Comparison is made with prior examination dated April 15, 2019. FINDINGS: Stable bibasilar atelectasis and/or infiltrates. The visualized portions of the heart are within normal limits. Normal liver. There are surgical clips in the gallbladder fossa consistent with a prior cholecystectomy. Normal spleen. Normal pancreas. Normal bilateral adrenal glands. Normal right kidney. Stable punctate calcification in the lower pole kinks of the left kidney. There is a small hiatal hernia. Normal small intestine. Normal colon. The appendix is visualized and appears normal. There is scattered atherosclerotic calcification of the abdominal aorta, without a demonstrated aneurysm. Normal inferior vena cava. Normal retroperitoneum. Normal urinary bladder. There are prostatic calcifications. Mild enlargement of the prostate. There is a small umbilical hernia containing fat. Minimal loss of height of the T12 vertebrae with evidence of prior vertebroplasty. CT/CTA Abdomen W/WO Contrast IMPRESSION: Persistent bibasilar atelectasis and/or infiltrates. There has been essentially no change as compared to prior study. Electronically Signed: Mars Jacinto, at 8:42 EST , Service support ,
--- NOTE | 2019-04-16 07:34 | CT_ITS ---
STUDY: CTA CHEST REASON FOR EXAM: Male, 63 years old. BACK PAIN, WORSE WITH MOVEMENT, DIAPHORETIC RADIATION DOSAGE (If Supplied By Facility): CTDIvol = ( 19.04 ) mGy, DLP = ( 1625.76 ) mGycm TECHNIQUE: The examination was performed with the intravenous administration of 100 CC ISOVUE 370. Post-processing of the angiographic images was performed, with multiplanar reformation and 3D reconstruction. Individualized dose optimization techniques were used for this CT. COMPARISON: Comparison is made with prior examination November 24, 2018. FINDINGS: There is evidence of multiple bilateral intraluminal filling defects involving multiple branches of both the right and left pulmonary arteries. This involves both the upper and lower lobes. Normal thoracic aorta and visualized great vessels. There is no demonstrated aortic dissection. Normal heart and pericardium. Normal mediastinum. Normal hilar regions. Normal visualized trachea and bronchi. The lungs are well expanded. Patchy infiltration versus atelectasis at the lung bases. Normal pleura. Normal chest wall structures. Prior vertebroplasty of the T12 vertebrae. Normal visualized upper abdomen. CT/CTA Chest W/WO Contrast IMPRESSION: Multiple bilateral pulmonary emboli involving both right and left pulmonary arteries involving the upper and lower lobes. Bibasilar infiltration and/or atelectasis at the lung bases. Electronically Signed: Mars Jacinto, at 8:44 EST , Service support ,
[2019-04-16] MEDS: 0.9% Normal Saline 1,000 ML 150 ML IV (07:43)
[2019-04-16] MEDS: Ondansetron 4 MG/2 ML Vial IV ×2 (07:43→23:50)
[2019-04-16] MEDS: HYDROmorphone 1 MG/ML Syringe IV ×2 (07:44→10:28)
--- NOTE | 2019-04-16 07:45 | ED.DCSUM_ITS ---
- ER Visit Summary Date of Service: 04/16/19 Chief Complaint: [Back pain History of Present Illness: The patient is a 63 M [presents to the emergency department complaint of pain in his back that started initially yesterday and was mild. Patient was seen in the emergency department last evening and had a C T scan of his abdomen pelvis without contrast as well as blood work and urinalysis which were unremarkable. There is no evidence of kidney stone at the time. Patient states he is never had pain quite like this unless it was a kidney stone. This morning at 6 AM he was awoken with severe pain once again. Patient took a [place] however did not improve his pain. Patient became sweaty and diaphoretic with it. Patient denies any fevers or chills. He denies any abdominal pain. He denies any pain radiating into his legs. Patient has prior history of stroke as well as coronary artery disease, hypertension, high cholesterol, history of kidney stones, and history of brain aneurysm. Patient currently rates his pain is 10 out of 10. Patient states the pain seems to be worse at times with deep breath and with movement but it just hurts all the time.] Physical Examination: [HEENT-PERRLA, EOMI. Cranial nerves II through XII grossly intact. TMs clear. Mucous membranes moist. No adenopathy. Cardiovascular-regular rate and rhythm without murmur or ectopy Lungs-clear to auscultation, chest wall stable without crepitus or subcu emphysema Abdomen-normoactive bowel sounds, soft, nontender, no rebound or rigidity, no peritoneal signs. Back exam-patient has no pain on palpation of the thoracic or lumbar spine. Patient does have reproducible pain when palpating the right posterior lower ribs. No significant CVA tenderness on exam. Patient has negative straight leg raises. Deep tendon reflexes are plus 2 out of 4 bilaterally at the patella and Achilles. Patient has normal L5 extension and normal sensation to light touch. Patient has normal pulses in both lower extremities. Extremities-intact ?4, normal range of motion, normal pulses, atraumatic] Test Results: [CBC with differential obtained showed an elevated white count 12.0, hemoglobin 14.6, hematocrit 42, placed 246. Chemistries unremarkable. CTA of the chest and abdomen ordered. CT of the chest showed bilateral pulmonary emboli with bibasilar atelectasis/infiltrate. CTA of the abdomen pelvis was unremarkable. EKG ordered and pending as well as troponin ordered an d pending.] Emergency Department Course and Treatment: [On arrival patient medicated with Dilaudid and Zofran. Patient also was started on Lovenox subcu. Patient had clotting profile ordered prior to Lovenox being given.] Treatment Plan: [Admit] Disposition: [Admit] Impression: [Lateral pulmonary emboli Intractable back pain-suspect secondary to pulmonary emboli] This note was generated with [employer] dictation software. It may contain incorrect words, spelling, and punctuation that were not noted in review of the chart prior to signing ED Disposition - Plan for ED Patient: Referrals: Nenita Knott MD [Primary Care Provider] -
[2019-04-16 07:56] LABS: Absolute Lymphocyte Count 1.84 X10^3/uL (0.83-4.51); Basophil# 0.03 X10^3/uL; Basophil% 0.3 % (0-1); Eosinophils% 0.8 % (0-5); Hematocrit 42.1 % (40-54); Hemoglobin 14.6 g/dL (13.0-16.5); Lymphocyte # 1.84 X10^3/ul (4.0); Lymphocyte % 15.4 % (19-41); Mean Corp Hgb Conc 34.7 g/dL (32-36); Mean Corpuscular Hgb 28.7 pg (27.0-32.0); Mean Corpuscular Volume 82.9 fL (80-94); Mean Platelet Vol. 10.1 fl (6.2-12.0); Monocyte# 0.94 X10^3/uL; Monocyte% 7.8 % (0-10); NRBC Flagged by Analyzer 0 % (0-5); Neutrophil # 8.99 X10^3/uL (2.7-7.7); Platelet Count 246 K/mm3 (150-450); RBC Distribution Width SD 36.8 fl (35.1-43.9); Red Blood Count 5.08 M/mm3 (4.6-6.2)
[2019-04-16 08:07] LABS: Anion Gap 5 (5-15); BUN 16 mg/dL (7-18); BUN/Creat Ratio 13.6 RATIO (10-20); Chloride 105 mmol/L (98-107); Creatinine, Serum 1.18 mg/dL (0.70-1.30); EST Glomerular Filtration Rate 66 mL/min (>60); Est Glom Filt Rate - Afr Amer 80 mL/min (>60); Estimated Creatinine Clearance 62.41 ml/min; Glucose 139 mg/dL (74-106); Potassium 3.6 mmol/L (3.5-5.1); Sodium Level 138 mmol/L (136-145)
[2019-04-16 08:35] LABS: Bacteria 0 SEEN /hpf (None Seen); Color, Urine Yellow (Yellow); Glucose, Dipstick Normal (Normal); Ketone-Dipstick Negative (Negative); Leukocyte Esterase-Dipstick Negative /ul (Negative); Mucous, Urine 0 SEEN /hpf (<or=2+); Nitrite-Dipstick Negative (Negative); Occult Blood-Urine Negative /ul (Negative); Protein-Dipstick 30 mg/dl (Negative); Red Blood Cells-Urine 0 SEEN /hpf (0-5); Urine Bilirubin Dipstick Negative (Negative); Urine Clarity Sl. Cloudy (Clear); Urine Urobilinogen 1 mg/dl (Normal); White Blood Cells 0 SEEN /hpf (0-5)
--- NOTE | 2019-04-16 08:52 | EKG12_ITS ---
Test Reason : Blood Pressure : / mmHG Vent. Rate : 099 BPM Atrial Rate : 099 BPM P-R Int : 168 ms QRS Dur : 084 ms QT Int : 362 ms P-R-T Axes : 030 -26 -02 degrees QTc Int : 464 ms Normal sinus rhythm Moderate voltage criteria for LVH, may be normal variant Nonspecific ST abnormality Abnormal ECG Confirmed by BASILIO RIOJAS, HERIBERTO ([id number]), food editor KARL DEMPSEY ([id number]) on 04/20/2019 10:12:45 AM Referred By: Jeremy Campos Confirmed By:HERIBERTO RICHMOND MD
[2019-04-16 08:54] LABS: Squamous Epithelial Cells - UA 0-5 SEEN /hpf (0-5)
[2019-04-16] MEDS: Enoxaparin 100 MG/ML Syringe 110 MG SC (08:57)
--- NOTE | 2019-04-16 13:04 | ECHOD_ITS ---
Reason For Study: emboli Procedure This was a 2D Doppler, Color Flow transthoracic echocardiogram. The study was technically difficult. PT was experiencing 8/10 RT flank/back pain. Exam performed portable in patient room. Left Ventricle Normal LV size. The estimated ejection fraction is 60 %. No evidence for diastolic dysfunction. No regional wall motion abnormalities noted. Right Ventricle Normal RV size. Normal systolic function. Atria Normal left atrium. Normal right atrium. No doppler evidence for ASD. Mitral Valve There is no mitral valve stenosis. No mitral valve insufficiency. Tricuspid Valve There is no tricuspid stenosis. Unable to estimate RV systolic pressure due to inadequate jet, pulmonary artery pressure probably normal. Aortic Valve Trisinus/trileaflet aortic valve. There is no aortic stenosis. No aortic valve insufficiency. Pulmonic Valve There is no pulmonic valvular stenosis. No pulmonic valve insufficiency. Great Vessels Normal aortic root. Pericardium/Pleural No pericardial effusion. MMode/2D Measurements & Calculations LVIDd: 5.7 cm IVSd: 1.2 cm Ao root diam: 3.2 cm LVIDs: 4.1 cm LVPWd: 1.2 cm RVDd: 4.0 cm FS: 28.5 % LAV(MOD-bp): 56.8 ml LA A4 area: 16.9 cm2 LA dimension(2D): 4.0 cm LAV(MOD-bp) Indexed: 25.7 ml/m2 LAV(MOD-sp2): 60.4 ml LAV(MOD-sp4): 48.8 ml Time Measurements MV dec time: 0.21 sec Doppler Measurements & Calculations MV E max junior: 70.5 cm/sec Lat Peak E' Junior: 7.9 cm/sec Med Peak E' Junior: 6.7 cm/sec MV A max junior: 79.7 cm/sec E/E' lat: 9.0 E/E' med: 10.6 MV E/A: 0.88 Ao V2 max: 155.4 cm/sec LV V1 max: 112.1 cm/sec PA V2 max: 170.3 cm/sec Ao max P.7 mmHg LV V1 max P.0 mmHg Interpretation Summary The estimated ejection fraction is 60 %. No evidence for diastolic dysfunction. Ordering Physician: Jeremy Campos Referring Physician: Nenita Knott Performed By: Amie Recio, RDCS, RVT
--- NOTE | 2019-04-16 14:57 | PCM.HP.STD ---
History of Present Illness Date of Admission: 04/16/19 Chief Complaint: Shortness of breath and flank pain The patient is a 63 year old M with a PMH as below who presents with flank pain and shortness of breath. He had presented to the ER yesterday and was presumed to have a kidney stone however he says that the pain is gotten worse and he was more short of breath with chest pressure that has not really resolved since it started back in October. He states that he had seen cardiology at that time he did not feel like it was a cardiac source of his chest pressure and therefore had referred him to pulmonology which had scheduled multiple tests that he has been quite gotten to yet. In the ER he had a CT scan of his abdomen which was negative for any type of vascular issue however since it was obtained with contrast could not tell whether where there was any kidney stone or not, so a CTA of his chest was obtained because he also complained at some point of posterior rib pain and some chest pain with inspiration, and a CT of his chest demonstrated multiple bilateral pulmonary emboli with either infiltration or atelectasis in the lung bases. In the ER he was given a dose of therapeutic Lovenox, and a hypercoagulable panel was sent. 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 No lightheadedness, fevers, chills, syncope Past Medical History Past Medical History (Chronic Problems): Chronic Problems (Last Updated 03/16/19 @ 19:43 by Jenn Portillo) Kidney stone (Chronic) Atherosclerosis of coronary artery of [place] heart without angina pectoris (Chronic) [id number] D1 w/ 2.5 x 14 mm Resolute Integrity Stent 09/17/2013 Aortic dilatation (Chronic) Aortic Root: Echo 2017: 4 cm; Essential hypertension (Chronic) Hyperlipemia, mixed (Chronic) CVA (cerebral vascular accident) (Chronic 01/2018) Right parietal ICH in January 2018 Medical History: Medical History (Last Updated 03/16/19 @ 19:43 by Jenn Portillo) Atherosclerosis of coronary artery of [place] heart without angina pectoris (Chronic) I25.10 [id number]-[id number] D1 w/ 2.5 x 14 mm Resolute Integrity Stent 09/17/2013 Aortic dilatation (Chronic) I77.819 Aortic Root: Echo 2017: 4 cm; Essential hypertension (Chronic) I10 Hyperlipemia, mixed (Chronic) E78.2 CVA (cerebral vascular accident) (Chronic) Onset Date: 01/2018 I63.9 Right parietal ICH in January 2018 Depressive disorder F32.9 Migraine G43.909 White matter abnormality on MRI of brain R90.82 Chest pain (Resolved) R07.9 Costochondritis M94.0 Allergies acetaminophen [From Darvocet-N 100] Allergy (Verified 04/16/19 07:10) Rash fenoprofen [From Nalfon] Allergy (Verified 04/16/19 07:10) Itching Penicillins Allergy (Verified 04/16/19 07:10) Rash propoxyphene [From Darvocet-N 100] Allergy (Verified 04/16/19 07:10) Rash Home Medications: Ambulatory Orders Medication Instructions Recorded Atorvastatin Calcium [Lipitor] 80 mg PO QHS 08/01/14 Lisinopril [Zestril] 20 mg PO DAILY 08/01/14 Nitroglycerin (INPATIENT USE) 0.4 mg SUBLINGUAL Q5M PRN 08/01/14 [Nitrostat] Aspirin [Aspirin EC] 81 mg PO DAILY 10/10/16 Ondansetron [Zofran Odt] 4 mg PO Q8H PRN PRN #10 tab 04/15/19 Furosemide 40 mg PO DAILY 04/16/19 Metoprolol Tartrate [Lopressor 50 mg PO BID 04/16/19 (beta odell)] Potassium Chloride [K-Tab ER] 20 meq PO DAILY 04/16/19 Surgical History: Surgical History (Last Reviewed 11/27/18 @ 15:53 by Navin Lennon MD) History of coronary artery stent placement (Resolved) Onset Date: 09/17/13 Z95.5 OMO-LHI-Vrce D1 w/ 2.5 x 14 mm Resolute Integrity Stent 2014 History of cholecystectomy Z90.49 History of colonoscopy Z98.890 History of knee surgery Z98.890 History of left heart catheterization Onset Date: 09/25/16 Z98.890 Surgical History: cholecystectomy, - - knee surgery, deviated septum Smoking Status: Never smoker - *Family History Maternal Family History: Family History (Last Reviewed 11/27/18 @ 15:53 by Navin Lennon MD) Brother Colon cancer Diabetes Cancer Father Cancer Brother Cancer Mother Cancer Thyroid disorder History Items: Cancer Paternal Family History: Family History (Last Reviewed 11/27/18 @ 15:53 by Navin Lennon MD) Brother Colon cancer Diabetes Cancer Father Cancer Brother Cancer Mother Cancer Thyroid disorder History Items: Cancer Sibling Family History: Family History (Last Reviewed 11/27/18 @ 15:53 by Navin Lennon MD) Brother Colon cancer Diabetes Cancer Father Cancer Brother Cancer Mother Cancer Thyroid disorder History Items: Cancer Review of Systems Constitutional: Denies: Chills, Fever, Weight Change HEENT: Denies: Head Aches, Sinus Congestion, Sinus Drainage Cardiovascular: Reports: Chest Pressure. Denies: Chest Pain, Palpitations Respiratory: Reports: Pleuritic Pain, Shortness of Breath. Denies: Cough, Hemoptysis, Shortness of breath at rest, Sputum production Gastrointestinal: Denies: Abdominal Pain, Nausea, Vomiting Genitourinary: Reports: - - Flank pain on the right. Denies: Dysuria Musculoskeletal: Denies: Joint Pain, Joint Tenderness Skin: Denies: Rash, Wounds Neurological: Denies: Focal weakness Psychiatric: Denies: Anxiety, Depression, Homicidal Ideations, Suicidal Ideations Hematologic/ Lymphatic: Denies: Easy Bruising, Easy Bleeding VTE Information - Inpt Only VTE Present on Admission: No - Physical Exam Vitals/I&O's: Vital Signs Temp Pulse Resp BP Pulse Ox 97.8 F 84 16 132/77 H 94 04/16/19 12:10 04/16/19 12:10 04/16/19 12:10 04/16/19 12:10 04/16/19 12:10 Oxygen Delivery Method Room Air Weight: 235 lb 10.786 oz Body Mass Index (BMI) 34.8 Finger Stick Blood Glucose 120 Intake and Output for Last 24 Hours 04/14/19 04/15/19 04/16/19 23:59 23:59 23:59 Intake Total 852.5 / 852.5 Balance 852.5 / 852.5 General: Alert, Oriented x3, Cooperative, No apparent distress HEENT: Atraumatic, PERRLA, EOMI, Normocephalic Oral: Moist Mucosa Neck: Supple, No JVD Lungs: Clear to auscultation, Normal air movement, No rhonchi, No wheeze, No rales, Diminished Cardiovascular: Regular rate, Regular Rhythm, Normal S1, Normal S2, No murmurs Abdomen: Soft, Non Tender, Non-Distended, No Hepato-splenomegaly Extremities: No edema, Capillary Refill Less than 3 Seconds Skin: No rashes, No breakdown Neurological: Neuro grossly intact, Sensory exam intact to light touch and pain Psych/Mental Status: Normal Affect, Appropriate Laboratory Results 04/16/19 07:40: WBC 12.0 H, RBC 5.08, Hgb 14.6, Hct 42.1, MCV 82.9, MCH 28.7, MCHC 34.7, RDW Std Deviation 36.8, RDW Coeff of Angelica 12.0, Plt Count 246, MPV 10.1, Immature Gran % (Auto) 0.700, Neut % (Auto) 75.0 H, Lymph % (Auto) 15.4 L, [place] % (Auto) 7.8, Eos % (Auto) 0.8, Baso % (Auto) 0.3, Absolute Neuts (auto) 9.0 H, Absolute Lymphs (auto) 1.84, Nucleated RBC % 0 04/16/19 07:40: Sodium 138, Potassium 3.6, Chloride 105, Carbon Dioxide 28.0, Anion Gap 5, BUN 16, Creatinine 1.18, Estim Creat Clear Calc 62.41, Est GFR (MDRD) Af Amer 80, Est GFR (MDRD) Non-Af 66, BUN/Creatinine Ratio 13.6, Glucose 139 H, Calcium 9.0 04/16/19 07:40: Lactic Acid 1.0 04/16/19 07:40: Troponin I < 0.015 04/16/19 08:25: Urine Color Yellow, Urine Clarity Sl. Cloudy, Urine pH 5.0, Ur Specific [place] 1.020, Urine Protein 30 H, Urine Glucose (UA) Normal, Urine Ketones Negative, Urine Occult Blood Negative, Urine Nitrite Negative, Urine Bilirubin Negative, Urine Urobilinogen 1 H, Ur Leukocyte Esterase Negative, Urine RBC 0 SEEN, Urine WBC 0 SEEN, Ur Squamous Epith Cells 0-5 SEEN, Urine Bacteria 0 SEEN, Urine Mucus 0 SEEN 04/16/19 08:55: PT Ratio Pending, Thrombin Time Pending, Thrombin Time Mix Pending, Lupus Anticoag aPTT Pending, Protein C Antigen Pending, Free Protein S Pending, Total Protein S Pending, Func Antithrombin III Pending, Factor V Leiden Mutat Pending, Beta-2-GPI IgG Ab Pending, Beta-2-GPI IgA Ab Pending, Beta-2-GPI IgM Ab Pending, Anti-Cardiolipin IgG Ab Pending, Anti-Cardiolipin IgM Ab Pending, Factor II DNA Analysis Pending Current Medications Apixaban (Eliquis) 10 mg PO BID MARIANO Sodium Chloride () 250 mls @ 15 mls/hr IV .[id number] PRN PRN Reason: Saline Flush Nutritional Formula (Lactose Free) (Ensure Enlive) 120 ml PO 4X/DAY MARIANO Sodium Chloride () 10 - 40 ml IV UD PRN PRN Reason: SALINE FLUSH Assessment/Plan All Active Problems (Last Updated 03/16/19 @ 19:43 by Jenn Portillo) History of coronary artery stent placement (Resolved 09/17/13) Chest pain (Resolved) 1. Bilateral pulmonary embolisms -He is not tachycardic and he does not have an elevated troponin, he is hemodynamically stable, echo is pending -We will proceed with Eliquis 10 mg twice daily for a week and then transition to 5 mg twice daily -We will have to monitor him closely given the fact that he had an intracranial hemorrhage from a previous aneurysm in 2018, unfortunately he does not need anticoagulation at the moment however will make sure to refer him to hematology as an outpatient for further evaluation just so anticoagulation could be of the shortest duration that is possible and safe for him -There does not appear to be any family history of clotting disorder, and he is never had blood clots before -There is hypercoagulable panel pending from the ER 2. Aortic dilatation/CAD status post stenting in 2013/history of intracranial hemorrhage from an aneurysm/HTN/HLD -Blood pressures limited in the 130s, will continue with his home blood pressure medication -Continue with Lipitor, lisinopril, Lasix, metoprolol -We will have to be very cautious with his anticoagulation though at the moment I do not feel it we have much choice given the bilateral PEs and the symptomatic nature of the PEs DVT: Eliquis Code Visit OBSV E&M: 64217 Initial observation care L3
[2019-04-16] MEDS: Ibuprofen 200 MG Tablet PO ×2 (15:25→21:27)
[2019-04-16] MEDS: APIXABAN 5 MG TABLET 10 MG PO (16:57)
[2019-04-16] MEDS: 0.9% Saline Lock 10 ML Syringe IV ×2 (17:04→23:51)
--- NOTE | 2019-04-16 18:59 | NURSING ---
Reviewed and agreed on all charting with Dk Godoy RN
[2019-04-16] MEDS: Lisinopril 20 MG Tablet PO (21:08)
[2019-04-16] MEDS: Atorvastatin Calcium 80 MG Tablet PO (21:09)
[2019-04-16] MEDS: Metoprolol Tartrate 50 MG Tablet PO (21:09)
--- NOTE | 2019-04-16 22:59 | NURSING ---
Pt. c/o increased R flank pain at this time. From previous 09/15 , now 12/16. Motrin was given earlier around 2114. Will notify hospitalist.
[2019-04-16] MEDS: Morphine 2 MG/ML Syringe IV (23:45)
[2019-04-17 02:51] VITALS: BP 140/86; PULSE 68; RESP 18; TEMP 36.9; O2SAT 94
[2019-04-17] MEDS: Morphine 2 MG/ML Syringe IV ×2 (02:58→06:54)
[2019-04-17] MEDS: 0.9% Saline Lock 10 ML Syringe IV ×3 (02:59→09:19)
[2019-04-17 03:30] VITALS: PULSE 65
[2019-04-17 05:37] LABS: Absolute Lymphocyte Count 1.67 X10^3/uL (0.83-4.51); Absolute Neutrophil Count 7.8 X10^3/uL (2.0-7.7); Basophil# 0.05 X10^3/uL; Basophil% 0.5 % (0-1); Eosinophil# 0.06 X10^3/uL; Eosinophils% 0.6 % (0-5); Hematocrit 37.9 % (40-54); Lymphocyte # 1.67 X10^3/ul (4.0); Lymphocyte % 15.7 % (19-41); Mean Corp Hgb Conc 34.3 g/dL (32-36); Mean Corpuscular Hgb 28.8 pg (27.0-32.0); Mean Platelet Vol. 10.2 fl (6.2-12.0); Monocyte# 0.97 X10^3/uL; Monocyte% 9.1 % (0-10); NRBC Flagged by Analyzer 0 % (0-5); Neutrophil # 7.84 X10^3/uL (2.7-7.7); Neutrophil % 73.4 % (47-70); Platelet Count 267 K/mm3 (150-450); RBC Distribution Width CV 12.2 % (11.6-14.6); Red Blood Count 4.51 M/mm3 (4.6-6.2); White Blood Count 10.7 K/mm3 (4.4-11.0)
[2019-04-17 05:54] LABS: Anion Gap 5 (5-15); BUN 11 mg/dL (7-18); BUN/Creat Ratio 11.5 RATIO (10-20); Calcium,Total 9.1 mg/dL (8.5-10.1); Chloride 108 mmol/L (98-107); Creatinine, Serum 0.95 mg/dL (0.70-1.30); EST Glomerular Filtration Rate 84 mL/min (>60); Est Glom Filt Rate - Afr Amer 102 mL/min (>60); Estimated Creatinine Clearance 77.52 ml/min; Glucose 99 mg/dL (74-106); Sodium Level 140 mmol/L (136-145)
[2019-04-17] MEDS: Ondansetron 4 MG/2 ML Vial IV (06:58)
[2019-04-17 07:00] VITALS: PULSE 79
[2019-04-17 08:51] VITALS: BP 136/74; PULSE 75; RESP 16; TEMP 37; O2SAT 94
[2019-04-17] MEDS: APIXABAN 5 MG TABLET 10 MG PO (09:12)
[2019-04-17 09:13] VITALS: PULSE 75
[2019-04-17] MEDS: Furosemide 40 MG Tablet PO (09:13)
[2019-04-17] MEDS: Ibuprofen 200 MG Tablet PO (09:13)
[2019-04-17] MEDS: Metoprolol Tartrate 50 MG Tablet PO (09:13)
--- NOTE | 2019-04-17 10:57 | PCM.DC ---
You will use the following diet at home:: Cardiac Your food should be the consistency of: Regular Your liquids should be the consistency of: Regular/Thin Discharge Activity: Return to Normal Activity Call your doctor if you observe: Fever of 101 or Higher, Shortness of breath, Dizziness, Fainting spells, Swelling in the ankles, Chest pain, Increased palpitations (irregular heartbeat) Allergies/Adverse Reactions: Allergies acetaminophen [From Darvocet-N 100] Allergy (Verified 04/16/19 07:10) Rash fenoprofen [From Nalfon] Allergy (Verified 04/16/19 07:10) Itching Penicillins Allergy (Verified 04/16/19 07:10) Rash propoxyphene [From Darvocet-N 100] Allergy (Verified 04/16/19 07:10) Rash Medications to take at Discharge Atorvastatin Calcium [Lipitor] 80 mg PO QHS 08/01/14 Lisinopril [Zestril] 20 mg PO DAILY 08/01/14 Nitroglycerin (INPATIENT USE) [Nitrostat] 0.4 mg SUBLINGUAL Q5M PRN 08/01/14 Ondansetron [Zofran Odt] 4 mg PO Q8H PRN PRN #10 tab 04/15/19 Furosemide 40 mg PO DAILY 04/16/19 Metoprolol Tartrate [Lopressor (beta odell)] 50 mg PO BID 04/16/19 Potassium Chloride [K-Tab ER] 20 meq PO DAILY 04/16/19 Apixaban [Eliquis] 10 mg PO BID #80 tab 04/17/19 The following prescriptions were given: Apixaban [Eliquis] 10 mg PO BID #80 tab Transmission Status: Pending to [facility] #[facility] Primary Care Physician: Nenita Knott MD [Primary Care Provider] - Please follow up with your Primary Care Physician in: 3-5 days Test Results: Test results from this visit will be discussed in further detail at your follow-up appointment, if applicable. Please Follow Up With: Skilled Nursing Case Manager When: previously scheduled Please Follow Up With: David Ziegler MD When: 2-4 weeks
[2019-04-17 11:04] VITALS: BP 149/83; PULSE 87; RESP 18; TEMP 36.9; O2SAT 96
--- NOTE | 2019-04-17 11:32 | PHA.DC.MC ---
Pharmacy Service has performed discharge medication reconciliation and counseling for this patient. 1. APIXABAN 10MG PO BID X 5 MORE DAYS THEN 5MG PO BID The patient's discharge medication list was reviewed for discrepancies and discrepancies were resolved. Home Medications Atorvastatin Calcium [Lipitor] 80 mg PO QHS 08/01/14 Lisinopril [Zestril] 20 mg PO DAILY 08/01/14 Nitroglycerin (INPATIENT USE) [Nitrostat] 0.4 mg SUBLINGUAL Q5M PRN 08/01/14 Ondansetron [Zofran Odt] 4 mg PO Q8H PRN PRN #10 tab 04/15/19 Furosemide 40 mg PO DAILY 04/16/19 Metoprolol Tartrate [Lopressor (beta odell)] 50 mg PO BID 04/16/19 Potassium Chloride [K-Tab ER] 20 meq PO DAILY 04/16/19 Apixaban [Eliquis] 10 mg PO BID #80 tab 04/17/19 The patient was counseled on the following discharge medications and changes in medications for homegoing were reviewed. The Reason for Use, instructions for use, and potential side effects were reviewed for all new medications. The patient's questions regarding all of their medications were answered. The patient was able to verbally demonstrate an understanding of their discharge medications.
--- NOTE | 2019-04-17 11:37 | CASEMGMT ---
Case Management Progress Note: Went to patient bedside, introduced self and role. Explained/reviewed RICE form with patient in regards to current hospital treatment. Informed Outpatient billing is determined by his insurance policy and continual review for any changes in condition that may warrant Inpatient status is done. Patient states acknowledgement and all questions addressed. RICE form signed and placed in patient hard chart, patient provided a copy. MEY Grissom
--- NOTE | 2019-04-17 12:45 | DS.PCM_ITS ---
Discharge Date and Diagnosis Date of Admission: 04/16/19 Date of Discharge: 04/17/19 - Secondary Discharge Diagnosis Chronic Problems (Last Updated 03/16/19 @ 19:43 by Jenn Portillo) Kidney stone (Chronic) Atherosclerosis of coronary artery of [place] heart without angina pectoris (Chronic) [id number] D1 w/ 2.5 x 14 mm Resolute Integrity Stent 09/17/2013 Aortic dilatation (Chronic) Aortic Root: Echo 2017: 4 cm; Essential hypertension (Chronic) Hyperlipemia, mixed (Chronic) CVA (cerebral vascular accident) (Chronic 01/2018) Right parietal ICH in January 2018 Hospital Course and Treatment Imaging Results: CTA Abdomen: IMPRESSION: Persistent bibasilar atelectasis and/or infiltrates. There has been essentially no change as compared to prior study. CTA Chest: IMPRESSION: Multiple bilateral pulmonary emboli involving both right and left pulmonary arteries involving the upper and lower lobes. Bibasilar infiltration and/or atelectasis at the lung bases. CT Abd/Pelvis from ED visit the day before:IMPRESSION: No acute findings. Punctate nonobstructing stone lower pole left kidney. Small left and one hernia containing fat but no bowel. Echo: Interpretation Summary The estimated ejection fraction is 60 %. No evidence for diastolic dysfunction. Operations: None Procedures: 2-D Echocardiogram Summary of Care Provided: Per HPI: The patient is a 63 year old M with a PMH as below who presents with flank pain and shortness of breath. He had presented to the ER yesterday and was presumed to have a kidney stone however he says that the pain is gotten worse and he was more short of breath with chest pressure that has not really resolved since it started back in October. He states that he had seen cardiology at that time he did not feel like it was a cardiac source of his chest pressure and therefore had referred him to pulmonology which had scheduled multiple tests that he has been quite gotten to yet. In the ER he had a CT scan of his abdomen which was negative for any type of vascular issue however since it was obtained with contrast could not tell whether where there was any kidney stone or not, so a CTA of his chest was obtained because he also complained at some point of post erior rib pain and some chest pain with inspiration, and a CT of his chest demonstrated multiple bilateral pulmonary emboli with either infiltration or atelectasis in the lung bases. In the ER he was given a dose of therapeutic Lovenox, and a hypercoagulable panel was sent. 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 No lightheadedness, fevers, chills, syncope Hospital Course: 1. Bilateral pulmonary [id number]-old male who presented to the hospital with right flank pain and shortness of breath was found to have bilateral pulmonary embolisms. Initially he had presented the night before and had an abdominal CT to rule out a kidney stone and it was completely negative other than what appeared to be atelectasis in the lung bases. He was discharged home however he returned to the ER because he had worsening flank pain and when he re-presented CTA of his abdomen was performed which was once again negative however he had also at that time a CTA of his chest which showed bilateral pulmonary embolisms. The scarring could possibly be from necrosis given his PEs. He was given a dose of therapeutic Lovenox and started on Eliquis. He had stents in 2013 and he had an intracranial hemorrhage in 2018 therefore his aspirin was discontinued in favor of discontinuing the Eliquis, he was felt to be too high risk for both. I would recommend that he follow-up with hematology as an outpatient so he could be on the shortest duration of anticoagulation pos [facility]. On admission he was not tachycardic and was not hypoxic, an echo was performed which was unremarkable with a normal diastolic and systolic function. He will follow-up with pulmonology as an outpatient as well as he had previously scheduled. I also discussed with him that I do not think his flank pain is of major concern at the moment, it appears to be just a muscular strain he says that he has been trying to sleep in a recliner which is likely in an odd position. There is also possibility for some referred pain just from his PEs and any lung scarring especially since he has pain with deep breaths and coughing. He had been coughing prior to this from an upper respiratory infection so there could also be a component of costochondritis going on. He will need to follow-up with his PCP as an outpatient. I discussed the plan with him and his who both expressed understanding and are in agreement. 2. His other medical diagnoses were evaluated and his home medications were continued where appropriate - Physical Exam Vitals/I&O's: Vital Signs Temp Pulse Resp BP Pulse Ox 98.4 F 87 18 149/83 H 96 04/17/19 11:04 04/17/19 11:04 04/17/19 11:04 04/17/19 11:04 04/17/19 11:04 Oxygen Delivery Method Room Air Weight: 235 lb 10.786 oz Body Mass Index (BMI) 34.8 Finger Stick Blood Glucose 120 Intake and Output for Last 24 Hours 04/15/19 04/16/19 04/17/19 23:59 23:59 23:59 Intake Total 2262.5 / 2262.5 680 / 680 Output Total 402 / 402 Balance 1860.5 / 1860.5 680 / 680 General: Alert, Oriented x3, Cooperative, No apparent distress HEENT: Atraumatic, PERRLA, EOMI, Normocephalic Oral: Moist Mucosa Neck: Supple, No JVD Lungs: Clear to auscultation, Normal air movement, No rhonchi, No wheeze, No rales, Diminished Cardiovascular: Regular rate, Regular Rhythm, Normal S1, Normal S2, No murmurs Abdomen: Soft, Non Tender, Non-Distended, No Hepato-splenomegaly, tenderness to palpation of his right flank though this is superficial and muscular in origin, no skin changes Extremities: No edema, Capillary Refill Less than 3 Seconds Skin: No rashes, No breakdown Neurological: Neuro grossly intact, Sensory exam intact to light touch and pain Psych/Mental Status: Normal Affect, Appropriate Laboratory Results 04/17/19 05:10: WBC 10.7, RBC 4.51 L, Hgb 13.0, Hct 37.9 L, MCV 84.0, MCH 28.8, MCHC 34.3, RDW Std Deviation 37.0, RDW Coeff of Angelica 12.2, Plt Count 267, MPV 10.2, Immature Gran % (Auto) 0.700, Neut % (Auto) 73.4 H, Lymph % (Auto) 15.7 L, [place] % (Auto) 9.1, Eos % (Auto) 0.6, Baso % (Auto) 0.5, Absolute Neuts (auto) 7.8 H, Absolute Lymphs (auto) 1.67, Nucleated RBC % 0 04/17/19 05:10: Sodium 140, Potassium 4.0, Chloride 108 H, Carbon Dioxide 27.0, Anion Gap 5, BUN 11, Creatinine 0.95, Estim Creat Clear Calc 77.52, Est GFR (MDRD) Af Amer 102, Est GFR (MDRD) Non-Af 84, BUN/Creatinine Ratio 11.5, Glucose 99, Calcium 9.1 Discharge Activity: Return to Normal Activity Call your doctor if you observe: Fever of 101 or Higher, Shortness of breath, Dizziness, Fainting spells, Swelling in the ankles, Chest pain, Increased palpitations (irregular heartbeat) Home Medications: Medications to take at Discharge Atorvastatin Calcium [Lipitor] 80 mg PO QHS 08/01/14 Lisinopril [Zestril] 20 mg PO DAILY 08/01/14 Nitroglycerin (INPATIENT USE) [Nitrostat] 0.4 mg SUBLINGUAL Q5M PRN 08/01/14 Ondansetron [Zofran Odt] 4 mg PO Q8H PRN PRN #10 tab 04/15/19 Furosemide 40 mg PO DAILY 04/16/19 Metoprolol Tartrate [Lopressor (beta odell)] 50 mg PO BID 04/16/19 Potassium Chloride [K-Tab ER] 20 meq PO DAILY 04/16/19 Apixaban [Eliquis] 10 mg PO BID #80 tab 04/17/19 Following Prescrptions Were Given to Patient: Apixaban [Eliquis] 10 mg PO BID #80 tab Transmission Status: Received by [facility] #30 Primary Care Physician: Nenita Knott MD [Primary Care Provider] - Please follow up with your Primary Care Physician in: 3-5 days Please Follow Up With: Cost Specialist When: previously scheduled Please Follow Up With: David Ziegler MD When: 2-4 weeks Disposition: Home Minutes spent on discharge:: 35 Patient Condition:: Stable Medical Necessity - Tobacco Use Smoking Status: Never smoker Meaningful Use Info Meaningful Use Diagnoses (Choose all that apply): None applicable Code Visit OBSV E&M: 23783 Observation care discharge
--- NOTE | 2019-04-17 13:14 | CASEMGMT ---
Pt to be sent home on Eliquis at discharge and med e-scribed to [facility] previously. Call to [facility] and per tech, pt's co-pay is $456.91 at this time but she is unable to tell me if this is deductible or not. This RN CM to room to discuss with pt/sig other and pt is upset at this time. This RN CM did provide them with a 30 day free trial card at this time. Pt is unsure of deductible as he just switched to [facility] insurance. This RN CM did inform Dr. Campos and he stated to provide with 30 day free card and have pt f/u with Dr. Knott and advise her of cost at that time. Pt/sig other updated on all, voice understanding. This RN CM did place call back to pharmacist at [facility] and he states that $362 of co-pay is deductible, so pt's monthly co-pay should only be about $94. Pt/sig other updated, voice understanding. Pt/sig other aware to discuss with Dr. Knott at f/u, voice understanding. Pt/sig other voice no further questions/concerns/needs at this time. SStaten RN CM
--- NOTE | 2019-04-17 13:37 | NURSING ---
Reviewed and agreed on all charting with Dk Godoy RN
[2019-04-21 16:07] LABS: Dilute Prothrombin Time (dPT) 47.6 sec (0.0-55.0); Dilute Russell Viper Venom 40.9 sec (0.0-47.0); PTT-LA 47.4 sec (0.0-51.9); Thrombin Time 15.7 sec (0.0-23.0); dPT Confirm Ratio 0.99 Ratio (0.00-1.40)
[2019-04-21 18:49] LABS: Anti-Cardiolipin Ab, IgG, Qn < 9 GPL U/mL (0-14); Anti-Cardiolipin Ab, IgM, Qn < 9 MPL U/mL (0-12); Antithrombin 3 Function 105 % (75-135); Beta-2-Glycoprotein I IgA <9 (0-25); Beta-2-Glycoprotein I IgG 9 (0-20); Beta-2-Glycoprotein I IgM <9 (0-32); Interpretation Comment: (.); Protein C Antigen 87 % (60-150); Protein S, Free 94 % (57-157); Protein S, Total 93 % (60-150)
== END 2019-04-17 11:03 | disposition home or self-care (01) ==
LOC: ED 07:37 → PCU 10:55
PROVIDERS: Admitting Provider Family Medicine; Emergency Provider Emergency Medicine; Family Provider Internal Medicine; PCP Internal Medicine; Referring Provider Family Medicine; Visit Provider Family Medicine
DX: I26.99 Other pulmonary embolism without acute cor pulmonale (principal); I25.10 Atherosclerotic heart disease of native coronary artery without angina pectoris; I10 Essential (primary) hypertension; E78.5 Hyperlipidemia, unspecified; Z86.73 Personal history of transient ischemic attack (TIA), and cerebral infarction without residual deficits; Z79.899 Other long term (current) drug therapy; Z79.82 Long term (current) use of aspirin
CPT/HCPCS: 36415; 71275; 74175; 80048; 81001; 81240; 81241; 83605; 84484; 85025; 85300; 85302; 85305; 85306; 86146; 86147; 93005; 93306; 96361; 96372; 96374; 96375; 96376; 97802; 99218; 99285; J7030; Q9967; A4216; G0378; J2405

== ENCOUNTER 2021-01-10 14:57 | Emergency (ER) | payer MEDICARE, OTHER, SELFPAY ==
[2021-01-10 14:59] VITALS: BP 152/95; PULSE 65; RESP 14; TEMP 36.8; O2SAT 94; BMI 32.3
--- NOTE | 2021-01-10 15:22 | EKG12_ITS ---
Test Reason : HEADACHE Blood Pressure : / mmHG Vent. Rate : 062 BPM Atrial Rate : 062 BPM P-R Int : 164 ms QRS Dur : 090 ms QT Int : 438 ms P-R-T Axes : 027 -29 040 degrees QTc Int : 444 ms Normal sinus rhythm Normal ECG Confirmed by ALON RIOJAS, WARREN ([id number]), image editor KARL DEMPSEY ([id number]) on 01/16/2021 9:45:40 A M Referred By: Confirmed By:ANCA CHI MD
--- NOTE | 2021-01-10 15:23 | EX.ED.VIS.HA ---
HPI History of Present Illness Chief Complaint: Headache Detail of Chief Complaint: Headache that started approximately 11:30 AM Informant: patient Narrative Narrative: Patient presents to the emergency department complaint of a headache that started around 11:30 AM and was relatively sudden. Patient states that last time he had a headache like this he had an intracranial hemorrhage. 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 Patient states that he actually has not felt well for a couple of days and just generally has been weak. Patient has history of migraines that is remote. He does describe some mild nausea throughout the day today but no vomiting. Patient has not had any photophobia. He denies any falls or head injuries. Patient is on apixaban. Patient has history of pulmonary emboli. Patient currently rates his headache a [address] [facility] Medical History (Updated 01/10/21 @ 17:[address] Antonella Marr, DO) Aortic dilatation Asthma Atherosclerosis of coronary artery of the [place] heart without angina pectoris Bilateral pulmonary embolism (04/16/19) Chest pain Costochondritis CVA (cerebral vascular accident) (2009) Depressive disorder Essential hypertension Hyperlipemia, mixed Intracranial hemorrhage (01/2018) Kidney stone Migraine Obesity White matter abnormality on MRI of brain Home Medications nitroglycerin 0.4 mg SUBLINGUAL Q5M PRN 08/01/14 [History Last Taken 05/24/18] furosemide 40 mg PO DAILY 04/16/19 [History Last Taken 04/15/19] albuterol sulfate 90 mcg/actuation aerosol inhaler 2 puff INHALATION Q6H PRN 01/05/20 [History Last Taken Unknown] apixaban 5 mg tablet 5 mg PO BID tab 01/05/20 [History Last Taken Unknown] atorvastatin 80 mg tablet 80 mg PO QHS 01/05/20 [History Last Taken Unknown] fluticasone furoate 200 mcg-vilanterol 25 mcg/dose inhalation powder 1 inh INHALATION Q24H 01/05/20 [History Last Taken Unknown] lisinopril 20 mg tablet 40 mg PO DAILY #90 tab 01/05/20 [Rx Last Taken Unknown] metoprolol tartrate 25 mg tablet 25 mg PO BID #180 tab 01/05/20 [Rx Last Taken Unknown] ondansetron 4 mg PO Q8H PRN PRN #10 tab 01/10/21 [Rx Last Taken Unknown] Allergy/AdvReac Type Severity Reaction Status Date / Time acetaminophen Allergy Rash Verified 01/04/21 12:58 [From Darvocet-N 100] fenoprofen [From Nalfon] Allergy Itching Verified 01/04/21 12:58 Penicillins Allergy Rash Verified 01/04/21 12:58 propoxyphene Allergy Rash Verified 01/04/21 12:58 [From Darvocet-N 100] Family History (Reviewed 01/04/21 @ 13:03 by Pablo Fierro [employer]CHO[employer]ACHER, [employer] TEACHER-C) Brother Colon cancer Diabetes Cancer Father Cancer Brother Cancer Mother Cancer Thyroid disorder Surgical History History of cholecystectomy History of colonoscopy History of coronary artery stent placement (09/17/13) History of knee surgery History of left heart catheterization (09/25/16) Social History (Reviewed 01/04/21 @ 13:03 by Pablo Fierro [employer]CHO[employer]ER, MIDDLE SCHOOL [employer] TEACHER-C) Smoking Status: Never smoker second hand exposure: No alcohol intake: never substance use type: does not use ROS ROS ED Constitutional Constitutional ED: Reports systems reviewed and no addt'l complaints, except as documented; Denies body ache(s), change in weight or chills Eyes Eyes: Denies acute decrease in peripheral vision, change in vision, double vision or loss of vision ENT ENT ED: Reports none; Denies ear pain, lip swelling, loss taste/smell, neck pain, otalgia or sore throat Cardiovascular Cardiovascular: Reports none; Denies abdominal pain, chest pain with activity, leg edema, lightheadedness, palpitations, rapid heart rate or syncope Respiratory/Chest Respiratory/Chest: Reports none; Denies change in mental status, dry cough, dyspnea, hemoptysis, shortness of breath at rest or shortness of breath with exertion Gastrointestinal Gastrointestinal: Reports none; Denies abdominal pain, change in stool character, diarrhea, hematemesis, hematochezia, melena, rectal bleeding or vomiting Genitourinary Genitourinary ED: Reports none; Denies abdominal discomfort, anuria, dysuria, genital pain or polyuria Musculoskeletal Musculoskeletal: Reports none; Denies arthralgias, back pain, difficulty walking, extremity pain, muscle weakness or myalgias Integumentary Reports none; Denies abscess or rash Neurologic Neurologic: Reports none, headache(s) and weakness; Denies abnormal gait, confusion, focal weakness, frequent falls, loss of vision, numbness, paresthesias, radicular pain or vertigo Psychiatric Psychiatric: Reports systems reviewed and no addt'l complaints, except as documented and none; Denies behavioral changes, confusion, difficulty concentrating, hallucinations, suicidal ideation, tactile hallucinations or visual hallucinations Endocrine Endocrinology: Denies none, cold intolerance, excessive sweating, fatigue or heat intolerance Hematologic/Lymphatic Hematologic/Lymphatic: Reports none; Denies anemia, easy bleeding or easy bruising Allergic/Immunologic Allergic/Immunologic ED: Denies as per HPI, none, lip swelling, mouth swelling, throat swelling, tongue swelling or hives EXAM Physical Exam Const Vital Signs: 01/10/21 14:59 01/10/21 16:12 01/10/21 17:53 Temperature 98.3 F Temperature Source Oral Pulse Rate 65 61 78 Respiratory Rate 14 16 16 Blood Pressure 152/95 H 160/86 H 144/83 H Blood Pressure Mean 114 110 Pulse Ox 94 95 97 Oxygen Delivery Method Room Air Room Air Positive well nourished and well developed General Appearance ED: well developed and NAD HEENT Reports TM's clear and moist mucous membranes normocephalic and atraumatic; Negative for trauma or tenderness Tympanic Membrane ED: Yes TM's clear Eyes PERRL and EOMs intact bilaterally General Eye ED: Negative for pale conjunctiva or scleral icterus Neck no lymphadenopathy, supple and no JVD General: Negative for tenderness Chest Wall inspection of chest normal and palpation of chest normal Chest: Negative for tenderness Resp normal respiratory effort and clear to auscultation bilaterally Effort and Inspection: Negative for respiratory distress or pain with movement Auscultation: Negative for rhonchi, wheezes or diminished lung sounds Cardio regular rate, regular rhythm, S1 normal heart sound, S2 normal heart sound and no murmurs Peripheral Pulses: pulses 2+ throughout GI normal to inspection, nondistended, normoactive bowel sounds, soft to palpation, non-tender, non-distended and no masses Back/Spine no CVA tenderness and no thoracic nor lumbar tenderness Extremity normal to inspection General Extremety ED: Negative for edema General Extremity: Negative for edema Neuro oriented x3, CN's II-XII intact bilaterally, no sensory deficits noted and gait normal Neuro Narrative: Finger-nose and heel [place] testing within normal limits, negative Romberg, negative pronator drift, fundi benign Sensorium / Orientation: awake, alert, oriented to person, oriented to place and oriented to time Motor Exam: strength 5/5 throughout and strength abnormal Psych mental status grossly normal Skin no rashes or lesions noted and no wounds MDM MDM MDM Narrative Medical decision making narrative: IV line established on arrival. Patient had CTA of the head and neck which was unremarkable and unchanged from prior. Patient was medicated with Reglan, Benadryl, and IV fluids and his headache improved significantly. He currently rates it a 4 out of 10. Etiology of his headache is unclear although I suspect possibility of migraine versus viral etiology as he has had some fatigue over the last several days. Lab Data Attestation: I reviewed the patient's lab results. Labs: Laboratory Results - last 24 hr 01/10/21 01/10/21 01/10/21 14:50 14:50 15:57 WBC 9.9 RBC 5.20 Hgb 15.4 Hct 44.3 MCV 85.2 MCH 29.6 MCHC 34.8 RDW Std Deviation 41.3 RDW Coeff of Angelica 13.3 Plt Count 245 MPV 10.4 Immature Gran % (Auto) 1.300 H Neut % (Auto) 81.8 H Lymph % (Auto) 9.5 L [place] % (Auto) 6.3 Eos % (Auto) 0.4 Baso % (Auto) 0.7 Absolute Neuts (auto) 8.1 H Absolute Lymphs (auto) 0.94 Nucleated RBC % 0 Sodium 141 Potassium 3.7 Chloride 107 Carbon Dioxide 28.0 Anion Gap 6 BUN 9 Creatinine 1.15 Estim Creat Clear Calc 62.33 Est GFR (MDRD) Af Amer 82 Est GFR (MDRD) Non-Af 67 BUN/Creatinine Ratio 7.8 L Glucose 123 H Calcium 9.1 Troponin I High Sens 8 Urine Color Yellow Urine Clarity Clear Urine pH 6.0 Ur Specific [place] 1.015 Urine Protein Negative Urine Glucose (UA) Normal Urine Ketones Negative Urine Occult Blood Negative Urine Nitrite Negative Urine Bilirubin Negative Urine Urobilinogen Normal Ur Leukocyte Esterase Negative Urine RBC 0 SEEN Urine WBC 0 SEEN Ur Squamous Epith Cells 0-5 SEEN Urine Bacteria 0 SEEN Urine Mucus 0 SEEN Radiography Diagnostic Testing: Radiology Impression Head/Neck CTA 01/10/21 16:04 IMPRESSION: 1. Normal [place]. 2. Minimal atherosclerotic changes in the right carotid bulb is hemodynamically significant by NASA criteria. 3. Normal left carotid and bilateral vertebral arteries. 4. No evidence of acute intracranial or calvarial abnormality or major interval change from 05/13/2018. Electronically Signed: Juan Castillo DO at 16:30 EDT Tel [phone], Service support , EKG Initial EKG: Attestation: I personally reviewed and interpreted this EKG as follows: Comments: Sinus rhythm with a ventricular rate of 62 bpm with no acute ST segment changes. Discharge Plan Triage Chief Complaint: Headache ED Provider: Antonella Marr Dx/Rx/DC Orders Clinical Impression: Cephalalgia Instructions: ED Headache Unspecified Prescriptions: New ondansetron [ondansetron] 4 MG tablet 4 mg PO Q8H PRN PRN (Reason: Nausea) Qty: 10 RF: 0 No Action atorvastatin 80 mg tablet 80 mg PO QHS RF: 0 apixaban 5 mg tablet 5 mg PO BID RF: 0 Breo Ellipta 200-25 mcg/dose blister with device 1 inh INHALATION Q24H RF: 0 albuterol sulfate 90 mcg/actuation HFA aerosol inhaler 2 puff INHALATION Q6H PRN (Reason: Shortness Of Breath Or Wheezing) RF: 0 metoprolol tartrate 25 mg tablet 25 mg PO BID Qty: 180 RF: 3 lisinopril 20 mg tablet 40 mg PO DAILY Qty: 90 RF: 3 nitroglycerin 0.4 MG tablet 0.4 mg sublingual Q5M PRN (Reason: Chest Pain) RF: 0 furosemide 40 MG tablet 40 mg PO DAILY RF: 0 Primary Care Provider: Nenita Knott Referrals: Nenita Knott MD [Primary Care Provider] - 3-5 Days Disposition Disposition: Home, Self Care
[2021-01-10] MEDS: 0.9% Normal Saline 1,000 ML 150 ML IV (15:34)
[2021-01-10 15:40] LABS: Absolute Lymphocyte Count 0.94 X10^3/uL (0.83-4.51); Absolute Neutrophil Count 8.1 X10^3/uL (2.0-7.7); Basophil# 0.07 X10^3/uL; Basophil% 0.7 % (0-1); Eosinophil# 0.04 X10^3/uL; Eosinophils% 0.4 % (0-5); Hematocrit 44.3 % (40-54); Hemoglobin 15.4 g/dL (13.0-16.5); Lymphocyte # 0.94 X10^3/ul (0.83-4.51); Lymphocyte % 9.5 % (19-41); Mean Corp Hgb Conc 34.8 g/dL (32-36); Mean Corpuscular Hgb 29.6 pg (27.0-32.0); Mean Corpuscular Volume 85.2 fL (80-94); Mean Platelet Vol. 10.4 fl (6.2-12.0); Monocyte# 0.62 X10^3/uL; Monocyte% 6.3 % (0-10); NRBC Flagged by Analyzer 0 % (0-5); Neutrophil # 8.07 X10^3/uL (2.7-7.7); Neutrophil % 81.8 % (47-70); Platelet Count 245 K/mm3 (150-450); RBC Distribution Width CV 13.3 % (11.6-14.6); RBC Distribution Width SD 41.3 fl (35.1-43.9); White Blood Count 9.9 K/mm3 (4.4-11.0)
[2021-01-10 15:58] LABS: Anion Gap 6 (5-15); BUN 9 mg/dL (7-18); BUN/Creat Ratio 7.8 RATIO (10-20); Calcium,Total 9.1 mg/dL (8.5-10.1); Chloride 107 mmol/L (98-107); Creatinine, Serum 1.15 mg/dL (0.70-1.30); EST Glomerular Filtration Rate 67 mL/min (>60); Est Glom Filt Rate - Afr Amer 82 mL/min (>60); Estimated Creatinine Clearance 62.33 ml/min; Glucose 123 mg/dL (74-106); Potassium 3.7 mmol/L (3.5-5.1); Sodium Level 141 mmol/L (136-145); Troponin-I HS 8 pg/mL (3.0-78.0)
[2021-01-10 16:02] LABS: Bacteria 0 SEEN /hpf (None Seen); Mucous, Urine 0 SEEN /hpf (<or=2+); Red Blood Cells-Urine 0 SEEN /hpf (0-5); White Blood Cells 0 SEEN /hpf (0-5)
--- NOTE | 2021-01-10 16:04 | CT_ITS ---
STUDY: CTA HEAD AND NECK WITH CONTRAST REASON FOR EXAM: Male, 65 years old. Headache. History of ruptured aneurysm. RADIATION DOSAGE (If Supplied By Facility): CTDIvol = ( 31.19 ) mGy, DLP = ( 1655.71 ) mGycm TECHNIQUE: CT angiography was performed with a multi-detector CT scanner. Data acquisition was obtained from the skull base through the vertex following intravenous administration of IV 100mL [id number]-370. MIP images were reconstructed from the axial data set. Post-processing of the angiographic images was performed, with multiplanar reformation and 3D reconstruction. Individualized dose optimization techniques were used for this CT. COMPARISON: CT of the abdomen, 05/13/2018. FINDINGS: Normal bilateral petrous carotid arteries. Normal right cavernous carotid artery with a normal supraclinoid bifurcation. There is calcified plaque formation of the left cavernous carotid artery, without a cross-sectional luminal stenosis. Normal right A1 segments of the anterior cerebral artery. Normal left A1 segments of the anterior cerebral artery. Normal intact anterior communicating artery (ACOM). Normal bilateral A2 segments of the anterior cerebral arteries. Normal right M1 and M2 segments of the middle cerebral arteries, with a normal M1 bifurcation. Normal left M1 and M2 segments of the middle cerebral arteries, with a normal M1 bifurcation. Normal right posterior communicating artery (PCOM). There is non-visualization of the left posterior communicating artery (PCOM). Normal bilateral vertebral arteries. Normal basilar artery with a normal basilar bifurcation. The visualized bilateral superior cerebellar (SCA) arteries are normal. Normal bilateral P1, P2 and visualized P3 segments of the posterior cerebral arteries. There is no demonstrated aneurysm of the [place]. There is no demonstrated abnormality of the visualized brain. AORTIC ARCH: Minimal atherosclerotic changes of the aortic arch without dissection or aneurysm. Normal origins of the brachiocephalic, left common carotid, and left subclavian arteries. RIGHT CAROTID ARTERIES: Normal right common carotid artery (CCA). Minimal focal calcifications in the carotid bulb without stenosis. Normal origin of the right internal carotid (ICA) artery without a hemodynamically significant stenosis. Tortuous visualized cervical portion of the right internal carotid artery. Normal origin of the right external carotid artery (ECA). LEFT CAROTID ARTERIES: Normal left common carotid artery (CCA). Normal left common carotid bulb. Normal origin of the left internal carotid (ICA) artery without a hemodynamically significant stenosis. Tortuous visualized cervical portion of the left internal carotid artery. Normal origin of the left external carotid artery (ECA). VERTEBRAL ARTERIES: Normal bilateral vertebral arteries. CT/CTA Head AND Neck W/ Contrast IMPRESSION: 1. Normal [place]. 2. Minimal atherosclerotic changes in the right carotid bulb is hemodynamically significant by NASA criteria. 3. Normal left carotid and bilateral vertebral arteries. 4. No evidence of acute intracranial or calvarial abnormality or major interval change from 05/13/2018. Electronically Signed: Juan Castillo DO at 16:30 EDT Tel [phone], Service support ,
[2021-01-10 16:10] LABS: Color, Urine Yellow (Yellow); Glucose, Dipstick Normal (Normal); Ketone-Dipstick Negative (Negative); Leukocyte Esterase-Dipstick Negative /ul (Negative); Nitrite-Dipstick Negative (Negative); Occult Blood-Urine Negative /ul (Negative); Protein-Dipstick Negative (Negative); Specific Gravity, Urine 1.015 (1.002-1.030); Urine Bilirubin Dipstick Negative (Negative); Urine Clarity Clear (Clear); Urine Urobilinogen Normal (Normal)
[2021-01-10 16:12] VITALS: BP 160/86; PULSE 61; RESP 16; O2SAT 95
[2021-01-10 16:15] LABS: Squamous Epithelial Cells - UA 0-5 SEEN /hpf (0-5)
[2021-01-10] MEDS: Metoclopramide 10 MG/2 ML Vial IV (17:01)
[2021-01-10] MEDS: DiphenhydrAMINE 50 MG/ML Syringe 25 MG IV (17:01)
[2021-01-10] MEDS: 0.9% Normal Saline 1,000 ML 999 ML IV (17:01)
[2021-01-10 17:53] VITALS: BP 144/83; PULSE 78; RESP 16; O2SAT 97
== END 2021-01-10 18:11 | disposition home or self-care (01) ==
PROVIDERS: Emergency Provider Emergency Medicine; PCP Internal Medicine
DX: R51.9 Headache, unspecified (principal); E66.9 Obesity, unspecified; E78.2 Mixed hyperlipidemia; F32.A Depression, unspecified; I10 Essential (primary) hypertension; I25.10 Atherosclerotic heart disease of native coronary artery without angina pectoris; J45.909 Unspecified asthma, uncomplicated; Z79.01 Long term (current) use of anticoagulants; Z86.711 Personal history of pulmonary embolism; M94.0 Chondrocostal junction syndrome [Tietze]
CPT/HCPCS: 70496; 70498; 80048; 81001; 84484; 85025; 87426; 93005; 96361; 96374; 96375; 99285; J7030; Q9967; A4216

== ENCOUNTER 2022-11-28 09:12 | Emergency (ER) | payer MEDICARE, OTHER, SELFPAY ==
[2022-11-28 09:13] VITALS: BP 155/96; PULSE 72; RESP 14; TEMP 36.6; O2SAT 96
--- NOTE | 2022-11-28 09:23 | ED.VIS.LOWEX ---
HPI History of Present Illness HPI Narrative: Patient presents with right knee pain that has been constant for the past 3 weeks. Patient states he fell 3 weeks ago and injured his back and right knee. Patient states he has been evaluated for his back. Patient states he still has some mild pain in his back. Patient states the pain in his knee is getting worse. Patient denies any paresthesias or weakness. Patient describes the pain as sharp. Patient states nothing makes it better nothing makes it worse. Patient admits to some swelling of the knee. Chief Complaint: Lower Extremity Injury Informant: patient Occured/Mechanism Mechanism/Context: Yes fall Onset/Context/Timing Onset: Weeks (3) Timing: Continuous Quality of Pain: Sharp Location: Right knee Worsened by: Nothing Relieved by: Nothing Associated Symptoms Associated Symptoms: Negative for Parasthesia, Weakness or Loss of Funtion PFSH [facility] Medical History (Updated 11/28/22 @ 10:[address] Ward Walker, DO) Aortic dilatation Asthma Atherosclerosis of coronary artery of [place] heart without angina pectoris Bilateral pulmonary embolism (04/16/19) Chest pain Costochondritis CVA (cerebral vascular accident) (2009) Depressive disorder Essential hypertension Hyperlipemia, mixed Intracranial hemorrhage (01/2018) Kidney stone Migraine Obesity White matter abnormality on MRI of brain Home Medications nitroglycerin 0.4 mg sublingual tablet 0.4 mg sublingual Q5M PRN Chest Pain 08/01/14 [History Last Taken 05/24/18] furosemide 40 mg tablet 40 mg PO DAILY Water pill 04/16/19 [History Last Taken 04/15/19] albuterol sulfate 90 mcg/actuation aerosol inhaler 2 puff inhalation Q6H PRN Shortness Of Breath Or Wheezing 01/05/20 [History Last Taken Unknown] apixaban 5 mg tablet 5 mg PO BID 01/05/20 [History Last Taken Unknown] atorvastatin 80 mg tablet 80 mg PO QHS 01/05/20 [History Last Taken Unknown] fluticasone furoate 200 mcg-vilanterol 25 mcg/dose inhalation powder (Breo Ellipta) 1 inh inhalation Q24H 01/05/20 [History Last Taken Unknown] lisinopril 20 mg tablet 40 mg (2 x 20 mg) PO DAILY #90 tabs 01/05/20 [Rx Last Taken Unknown] metoprolol tartrate 25 mg tablet 25 mg PO BID heart rate #180 tabs 01/05/20 [Rx Last Taken Unknown] ondansetron 4 mg disintegrating tablet 4 mg PO Q8H PRN PRN Nausea #10 tabs 01/10/21 [Rx Last Taken Unknown] hydrocodone-acetaminophen 5-325mg 5mg-325mg 1 tab PO Q6H PRN PRN Pain 3 days #10 TABLETS 11/28/22 [Rx Last Taken Unknown] Allergy/AdvReac Type Severity Reaction Status Date / Time acetaminophen Allergy Rash Verified 11/28/22 09:14 [From Darvocet-N 100] fenoprofen [From Nalfon] Allergy Itching Verified 11/28/22 09:14 Penicillins Allergy Rash Verified 11/28/22 09:14 propoxyphene Allergy Rash Verified 11/28/22 09:14 [From Darvocet-N 100] Family History (Reviewed 01/04/21 @ 13:03 by Pablo Fierro PRINCIPAL DATABASE DEVELOPER, PRINCIPAL DATABASE DEVELOPER-C) Brother Colon cancer Diabetes Cancer Father Cancer Brother Cancer Mother Cancer Thyroid disorder Surgical History History of cholecystectomy History of colonoscopy History of coronary artery stent placement (09/17/13) History of knee surgery History of left heart catheterization (09/25/16) Social History Smoking Status: Never smoker second hand exposure: No alcohol intake: never substance use type: does not use ROS ROS ED Constitutional Constitutional ED: Denies chills or fever(s) Eyes Eyes: Denies blurry vision or change in vision ENT ENT ED: Denies rhinorrhea or sore throat Cardiovascular Cardiovascular: Denies chest pain or palpitations Respiratory/Chest Respiratory/Chest: Denies cough or dyspnea Gastrointestinal Gastrointestinal: Denies nausea or vomiting Genitourinary Genitourinary ED: Denies dysuria or hematuria Musculoskeletal Musculoskeletal: Reports back pain; Denies neck pain Integumentary Denies abscess or rash Neurologic Neurologic: Denies headache(s) or weakness Allergic/Immunologic Allergic/Immunologic ED: Denies mouth swelling or urticaria EXAM Physical Exam Const Vital Signs: 11/28/22 09:13 Temperature 97.9 F Temperature Source Temporal Pulse Rate 72 Respiratory Rate 14 Blood Pressure 155/96 H Blood Pressure Mean 115 Pulse Ox 96 Oxygen Delivery Method Room Air Positive well nourished and well developed General Appearance ED: well developed and NAD HEENT Reports moist mucous membranes Neck full ROM and supple Extremity Extremity Narrative: There is tenderness over the right knee. There is a mild effusion. There is no erythema or warmth. There is no pain with short arc range of motion. Range of motion was limited in flexion extension of the right knee secondary to pain. There is no laxity appreciated. There is no bony crepitance or step-off. There is no obvious deformity noted. Posterior tibial pulses are equal bilateral. Sensation was intact to light touch bilaterally in the lower extremities. Neuro oriented x3, CN's II-XII intact bilaterally, moves all extremities and no sensory deficits noted Sensorium / Orientation: alert Motor Exam: strength 5/5 throughout Psych mental status grossly normal Skin no wounds MDM MDM MDM Narrative Medical decision making narrative: Differential diagnosis includes fracture, sprain, contusion, meniscus tear, and ligament tear. X-rays of the right knee will be obtained to assess for fracture and dislocation. Radiography Diagnostic Testing: Clinical Impression(s) from Imaging Studies Knee X-Ray 11/28/22 09:27 IMPRESSION: Osteopenia with tricompartmental arthrosis, small effusion and probable small intra-articular osteochondral body. No acute abnormality or erosive changes. Electronically Signed: Madhu Landrum MD at 9:58 EDT , X-rays of the right knee were obtained. There are 6 views. On my independent interpretation, there is no acute fracture. There is no dislocation. There are degenerative changes noted. There is a small effusion. Radiologist also interpreted the x-rays and agrees. Treatment and Re-Evaluation Narrative: Patient was given a dose of [place] here. Patient was advised of his findings. Patient was instructed to ice and elevate the right knee. Patient was given a prescription for a short course of [place]. Patient was instructed to follow-up with orthopedics in 5 to 7 days. Patient was instructed return if worse in any way. Patient understood and was agreeable with the plan. All questions were answered. Discharge Plan Triage Chief Complaint: Lower Extremity Injury ED Provider: Ward Walker Dx/Rx/DC Orders Clinical Impression: Effusion of knee joint right, Acute pain of right knee Instructions: ED Knee Effusion Prescriptions: New hydrocodone-acetaminophen [hydrocodone-acetaminophen] 5-325 mg tablet 1 tab PO Q6H PRN PRN (Reason: Pain) 3 Days Qty: 10 0RF No Action atorvastatin 80 mg tablet 80 mg PO QHS apixaban 5 mg tablet 5 mg PO BID Breo Ellipta 200-25 mcg/dose blister with device 1 inh INHALATION Q24H albuterol sulfate 90 mcg/actuation HFA aerosol inhaler 2 puff INHALATION Q6H PRN (Reason: Shortness Of Breath Or Wheezing) metoprolol tartrate 25 mg tablet 25 mg PO BID Qty: 180 3RF lisinopril 20 mg tablet 40 mg PO DAILY Qty: 90 3RF nitroglycerin 0.4 MG tablet 0.4 mg sublingual Q5M PRN (Reason: Chest Pain) Patient Comments: CHEST PAIN furosemide 40 MG tablet 40 mg PO DAILY ondansetron [ondansetron] 4 MG tablet 4 mg PO Q8H PRN PRN (Reason: Nausea) Qty: 10 0RF Primary Care Provider: Nenita Knott Referrals: Nenita Knott MD [Primary Care Provider] - 5-7 Days Con Sandoval MD [Med Staff - Active Staff] - 5-7 Days Disposition Disposition: Home, Self Care
[2022-11-28 09:24] VITALS: BMI 31.0
--- NOTE | 2022-11-28 09:27 | RAD_ITS ---
STUDY: X-RAY - RIGHT KNEE REASON FOR EXAM: Male, 67 years old. Fall 3 days ago. Knee pain. TECHNIQUE: 5 view(s) of the knee. COMPARISON: None. FINDINGS: Osteopenia. Mild arthrosis of the medial compartment with small osteophytes. Moderate arthrosis of the lateral compartment with small osteophytes. Moderate arthrosis of the patellofemoral compartment with small osteophytes. Joint effusion with ovoid 7 mm in diameter calcification projected lateral to the patella on the sunrise view which may represent an intra-articular osteochondral body. Vascular calcification. RAD/Knee 4 or More Views IMPRESSION: Osteopenia with tricompartmental arthrosis, small effusion and probable small intra-articular osteochondral body. No acute abnormality or erosive changes. Electronically Signed: Madhu Landrum MD at 9:58 EDT ,
[2022-11-28] MEDS: HYDROcodone Bitartrate/Apap 5/325 Tablet PO (09:34)
== END 2022-11-28 10:41 | disposition home or self-care (01) ==
PROVIDERS: Emergency Provider Emergency Medicine; PCP Internal Medicine; Visit Provider Emergency Medicine
DX: M25.461 Effusion, right knee (principal); I10 Essential (primary) hypertension; I25.10 Atherosclerotic heart disease of native coronary artery without angina pectoris; E78.2 Mixed hyperlipidemia; Z86.73 Personal history of transient ischemic attack (TIA), and cerebral infarction without residual deficits; J45.909 Unspecified asthma, uncomplicated; Z86.711 Personal history of pulmonary embolism; Z79.01 Long term (current) use of anticoagulants; Z90.49 Acquired absence of other specified parts of digestive tract; Z95.5 Presence of coronary angioplasty implant and graft; M25.561 Pain in right knee; W19.XXXA Unspecified fall, initial encounter
CPT/HCPCS: 73564; 99282; A4216

== ENCOUNTER 2022-12-02 14:26 | Emergency (ER) | payer MEDICARE, OTHER, SELFPAY ==
[2022-12-02 14:26] VITALS: BP 160/83; PULSE 59; RESP 18; TEMP 36; O2SAT 97; BMI 31.0
--- NOTE | 2022-12-02 15:38 | EDS_ITS ---
HPI History of Present Illness Chief Complaint: Lower Extremity Injury Narrative Narrative: 67-year-old male presents with increasing right knee pain and blister that appeared on his kneecap yesterday. He denies any fevers or chills, no nausea or vomiting. Of note, he was seen in the emergency department on Saturday, approximately 5 days ago where he had x-rays performed which showed tricompartmental arthritis and small effusion. He presents because of increased swelling of his knee and pain. He ran out of his [place] and is unable to sleep. He has an appointment with orthopedics, Dr. Con Sandoval tomorrow morning. He presents because of the increased pain and swelling, and a small blister that appeared on his kneecap. He relates history that he had remote surgery of a broken patella in the past remotely, and he had surgery where they tied tendons. [facility] Medical History (Updated 12/02/22 @ 16:53 by Juan F Haq MD) Aortic dilatation Asthma Atherosclerosis of coronary artery of [place] heart without angina pectoris Bilateral pulmonary embolism (04/16/19) Chest pain Costochondritis CVA (cerebral vascular accident) (2009) Depressive disorder Essential hypertension Hyperlipemia, mixed Intracranial hemorrhage (01/2018) Kidney stone Migraine Obesity White matter abnormality on MRI of brain Home Medications nitroglycerin 0.4 mg sublingual tablet 0.4 mg sublingual Q5M PRN Chest Pain 08/01/14 [History Last Taken 05/24/18] furosemide 40 mg tablet 40 mg PO DAILY Water pill 04/16/19 [History Last Taken 04/15/19] albuterol sulfate 90 mcg/actuation aerosol inhaler 2 puff inhalation Q6H PRN Shortness Of Breath Or Wheezing 01/05/20 [History Last Taken Unknown] apixaban 5 mg tablet 5 mg PO BID 01/05/20 [History Last Taken Unknown] atorvastatin 80 mg tablet 80 mg PO QHS 01/05/20 [History Last Taken Unknown] fluticasone furoate 200 mcg-vilanterol 25 mcg/dose inhalation powder (Breo Ellipta) 1 inh inhalation Q24H 01/05/20 [History Last Taken Unknown] lisinopril 20 mg tablet 40 mg (2 x 20 mg) PO DAILY #90 tabs 01/05/20 [Rx Last Taken Unknown] metoprolol tartrate 25 mg tablet 25 mg PO BID heart rate #180 tabs 01/05/20 [Rx Last Taken Unknown] ondansetron 4 mg disintegrating tablet 4 mg PO Q8H PRN PRN Nausea #10 tabs 01/10/21 [Rx Last Taken Unknown] hydrocodone-acetaminophen 5-325mg 5mg-325mg 1 tab PO Q6H PRN PRN Pain 3 days #10 TABLETS 11/28/22 [Rx Last Taken Unknown] cephalexin 500 mg capsule 500 mg PO BID #14 caps 12/02/22 [Rx Last Taken Unknown] hydrocodone-acetaminophen 5-325mg 5mg-325mg 1 tab PO Q6H PRN pain 3 days #12 tabs 12/02/22 [Rx Last Taken Unknown] Allergy/AdvReac Type Severity Reaction Status Date / Time acetaminophen Allergy Rash Verified 12/02/22 14:28 [From Darvocet-N 100] fenoprofen [From Nalfon] Allergy Itching Verified 12/02/22 14:28 Penicillins Allergy Rash Verified 12/02/22 14:28 propoxyphene Allergy Rash Verified 12/02/22 14:28 [From Darvocet-N 100] Family History Brother Colon cancer Diabetes Cancer Father Cancer Brother Cancer Mother Cancer Thyroid disorder Surgical History History of cholecystectomy History of colonoscopy History of coronary artery stent placement (09/17/13) History of knee surgery History of left heart catheterization (09/25/16) Social History (Updated 12/02/22 @ 15:45 by Sheri Jones) household members: spouse housing: house Smoking Status: Never smoker second hand exposure: No alcohol intake: never substance use type: does not use ROS ROS ED ROS Narrative Constitutional: No fever, no chills. HEENT: No sore throat. No neck pain. No loss of vision. No rhinorrhea. Cardiovascular: No chest pain. No palpitations. No pedal edema. Respiratory: No cough, no shortness of breath. Abdominal: No abdominal pain. No nausea. No vomiting. Genitourinary: No dysuria. No hematuria. Musculoskeletal: No myalgias. Right knee pain and swelling. Small blister appearing on skin of patella. Neurologic: No headaches. No dizziness. No lightheadedness. Skin: No rash. No change in color. Psychiatric: No depression. No anxiety. EXAM Physical Exam Narrative Exam Narrative: Afebrile. Vital signs noted. HEENT: Normocephalic. Atraumatic. PERRL, EOMI. Neck soft and supple. No point tenderness or step off. Cardiovascular: Regular rate and rhythm. No murmurs, rubs, or gallops appreciated. Respiratory: No tachypnea. Lungs clear to auscultation bilaterally. Gastrointestinal: Abdomen soft, nontender, with normoactive bowel sounds. No rebound or guarding. Neurological: Awake. Alert. Nonfocal, nonlateralizing. Skin: No rash. Normal color. No pallor. Small lesion or blister appearing on patellar surface without surrounding erythema. Dried, slightly honey crusted drainage noted. Musculoskeletal: No pedal edema. Full range of motion extremities except right knee which has limited range of motion secondary to pain and mild swelling. No noted erythema. Palpable dorsalis pedis pulse. No palpable cord right lower extremity. Const Vital Signs: 12/02/22 14:26 Temperature 96.8 F L Temperature Source Temporal Pulse Rate 59 L Respiratory Rate 18 Blood Pressure 160/83 H Blood Pressure Mean 108 Pulse Ox 97 Oxygen Delivery Method Room Air MDM MDM MDM Narrative Medical decision making narrative: Suspicion is high for increasing right knee effusion. He was given a [place] tablet here, and x-rays obtained again of the right knee to assess effusion. I have lower concern for DVT as the patient is on Eliquis. I do not feel that emergent ultrasound is indicated as he is already taking an anticoagulant. Regarding the blister on his right knee, I do feel that it is more on the surface, and I have low concern for intra-articular infection/septic joint as there is no surrounding erythema and he is afebrile. I did have a lengthy discussion with the patient regarding hesitancy to perform arthrocentesis in the ED as he is on Eliquis, and is supposed to see his orthopedic surgeon tomorrow morning. I reviewed his x-rays and 4 views of his right knee and see once again tricompartmental osteoarthritis with severe narrowing of the joint space. Effusion may be slightly larger than previous. I reviewed the radiology report which confirms my independent interpretation, there is no evidence of acute fracture. At this point in time, he will be placed in an [place] wrap. He declined crutches or prescription for a walker. He is able to flex and extend his right knee and ambulate. Regarding this blister on his knee, I do feel that it is more of a skin impetigo which will be treated with Keflex. He was given a pr escription for this and more [place] tablets. I feel he can be discharged safely home with follow-up to orthopedics tomorrow as well. I do not feel that he requires observation. Return instructions to the emergency department were reviewed. Disposition is discharged home in stable condition. History & Record Review Discussion w/independent historian: Patient and Family Additional record(s) reviewed:: Prior outpatient record and Prior ED visit Radiography Diagnostic Testing: Clinical Impression(s) from Imaging Studies Knee X-Ray 12/02/22 16:24 IMPRESSION: Tricompartmental osteoarthrosis as above. Electronically Signed: Glenn Damon DO at 16:39 EDT , Discharge Plan Triage Chief Complaint: Lower Extremity Injury ED Provider: Juan F Haq Dx/Rx/DC Orders Clinical Impression: Effusion of knee joint right, Acute pain of right knee, Degenerative joint disease of knee, right, Impetigo any site Instructions: Understanding Impetigo, ED Knee Effusion, ED Osteoarthritis Prescriptions: New hydrocodone-acetaminophen 5-325 mg tablet 1 tab PO Q6H PRN (Reason: pain) 3 Days Qty: 12 0RF cephalexin 500 mg capsule 500 mg PO BID Qty: 14 0RF No Action atorvastatin 80 mg tablet 80 mg PO QHS apixaban 5 mg tablet 5 mg PO BID Breo Ellipta 200-25 mcg/dose blister with device 1 inh INHALATION Q24H albuterol sulfate 90 mcg/actuation HFA aerosol inhaler 2 puff INHALATION Q6H PRN (Reason: Shortness Of Breath Or Wheezing) metoprolol tartrate 25 mg tablet 25 mg PO BID Qty: 180 3RF lisinopril 20 mg tablet 40 mg PO DAILY Qty: 90 3RF nitroglycerin 0.4 MG tablet 0.4 mg sublingual Q5M PRN (Reason: Chest Pain) Patient Comments: CHEST PAIN furosemide 40 MG tablet 40 mg PO DAILY ondansetron [ondansetron] 4 MG tablet 4 mg PO Q8H PRN PRN (Reason: Nausea) Qty: 10 0RF hydrocodone-acetaminophen [hydrocodone-acetaminophen] 5-325 mg tablet 1 tab PO Q6H PRN PRN (Reason: Pain) 3 Days Qty: 10 0RF Primary Care Provider: Nenita Knott Referrals: Nenita Knott MD [Primary Care Provider] - 1 Week if not improving Con Sandoval MD [Med Staff - Active Staff] - 1 Day Activity Restrictions/Additional Instructions: Follow-up with Dr. Sandoval with orthopedics tomorrow as scheduled. Disposition Disposition: Home, Self Care
[2022-12-02] MEDS: Cephalexin 250 MG Capsule 500 MG PO (15:41)
[2022-12-02] MEDS: HYDROcodone Bitartrate/Apap 5/325 Tablet PO (15:42)
--- NOTE | 2022-12-02 16:24 | RAD_ITS ---
STUDY: X-RAY - RIGHT KNEE REASON FOR EXAM: Male, 67 years old. pain, swelling TECHNIQUE: 4 view(s) of the knee. COMPARISON: None. FINDINGS: Normal visualized distal femur. Normal visualized proximal tibia and fibula. Normal proximal tibiofibular articulation. There is severe degenerative arthrosis of the medial femorotibial compartment with severe joint space narrowing. There is moderate degenerative arthrosis of the lateral femorotibial compartment with moderate joint space narrowing. There is moderate degenerative arthrosis of the patellofemoral articulation. The soft tissue structures are unremarkable. RAD/Knee 4 or More Views IMPRESSION: Tricompartmental osteoarthrosis as above. Electronically Signed: Glenn Damon DO at 16:39 EDT ,
[2022-12-02 17:14] VITALS: RESP 18
== END 2022-12-02 17:15 | disposition home or self-care (01) ==
PROVIDERS: Emergency Provider Emergency Medicine; PCP Internal Medicine; Visit Provider Emergency Medicine
DX: M25.461 Effusion, right knee (principal); M17.11 Unilateral primary osteoarthritis, right knee; E78.2 Mixed hyperlipidemia; I25.10 Atherosclerotic heart disease of native coronary artery without angina pectoris; L01.00 Impetigo, unspecified; I10 Essential (primary) hypertension
CPT/HCPCS: 73564; 99283

== ENCOUNTER → 2022-12-03 | Outpatient (CLI) | payer MEDICARE, OTHER, SELFPAY ==
[2022-12-03 12:21] LABS: Erythrocyte Sedimentation Rate 1 mm/hr (0-20)
[2022-12-03 12:23] LABS: Absolute Lymphocyte Count 1.56 X10^3/uL (0.83-4.51); Basophil# 0.07 X10^3/uL; Basophil% 0.9 % (0-1); Eosinophil# 0.28 X10^3/uL; Eosinophils% 3.7 % (0-5); Hematocrit 47.2 % (40-54); Hemoglobin 15.3 g/dL (13.0-16.5); Lymphocyte # 1.56 X10^3/ul (0.83-4.51); Lymphocyte % 20.5 % (19-41); Mean Corp Hgb Conc 32.4 g/dL (32-36); Mean Corpuscular Hgb 29.3 pg (27.0-32.0); Mean Corpuscular Volume 90.2 fL (80-94); Mean Platelet Vol. 10.5 fl (6.2-12.0); Monocyte# 0.62 X10^3/uL; Monocyte% 8.1 % (0-10); NRBC Flagged by Analyzer 0 % (0-5); Neutrophil # 5.04 X10^3/uL (2.7-7.7); Neutrophil % 66.3 % (47-70); Platelet Count 254 K/mm3 (150-450); RBC Distribution Width CV 13.2 % (11.6-14.6); RBC Distribution Width SD 43.5 fl (35.1-43.9); Red Blood Count 5.23 M/mm3 (4.6-6.2); White Blood Count 7.6 K/mm3 (4.4-11.0)
[2022-12-03 12:50] LABS: CRP < 2.90 mg/L (0.0-3.0)
[2022-12-03 13:06] LABS: AUTO B FLUID DILUENT BKGD CT WBC <0.1 RBC <0.01 (W<.1,R<.01); RBC /Synovial Fluid 0.099 10^6/uL (0); Source- Body Fluid SYNOVIAL; Synovial Fld Mononuclear WBC # 0.164 10^3/ul; Synovial Fld Mononuclear WBC % 61.7 %; Synovial Fld Polynuclear WBC # 0.102 10^3/uL; Synovial Fld Polynuclear WBC % 38.3 %
[2022-12-03 13:07] LABS: Appearance /Synovial Fluid Cloudy (CLEAR); Color / Synovial Fluid Red (Pale Yellow); Source / Synovial Fluid RT KNEE; Viscosity / Synovial Fluid Viscous (HIGH)
[2022-12-03 13:28] LABS: Lymph 50 %; Monocyte /Synovial Fluid 5 %; Neutrophil 45 % (0-25)
[2022-12-03 13:29] LABS: CRYSTALS, BODY FLUID NO CRYSTALS SEEN
[2022-12-03 13:42] LABS: Body Fluid QC Type(s) BF1Q,BF2Q
[2022-12-04 12:33] LABS: Pathologist Review Reviewed
[2022-12-04 12:34] LABS: Pathologist Comment Reviewed
== END | disposition home or self-care (01) ==
PROVIDERS: PCP Internal Medicine; Referring Provider Physician Assistant Surgical; Visit Provider Physician Assistant Surgical
DX: S80.01XA Contusion of right knee, initial encounter (principal)
CPT/HCPCS: 36415; 85025; 85652; 86140; 87070; 87075; 87205; 89050; 89051; 89060

== ENCOUNTER → 2023-11-04 | Outpatient (CLI) | payer MEDICARE, OTHER, SELFPAY ==
--- NOTE | 2023-11-04 14:45 | MRI_ITS ---
EXAM: MR RIGHT LOWER EXTREMITY WITHOUT INTRAVENOUS CONTRAST, FOOT CLINICAL INDICATION: PAIN, R foot fx TECHNIQUE: Multiplanar and multisequence MR images of the right foot without intravenous contrast. COMPARISON: No relevant prior studies available. FINDINGS: LIGAMENTS: MEDIAL COLLATERAL: Unremarkable. Intact. LATERAL COLLATERAL: Unremarkable. Intact. LISFRANC: Unremarkable. Intact. TENDONS: FLEXOR: Tenosynovitis involving the flexor digitorum longus and flexor hallucis longus without tendon tearing. EXTENSOR: Unremarkable. Intact. PERONEAL: Unremarkable. Intact. TIBIALIS ANTERIOR: Unremarkable. Intact. TIBIALIS POSTERIOR: Unremarkable. Intact. MUSCLES: Unremarkable. No edema or myositis. FLUID: Unremarkable. No joint effusion. PLANTAR FASCIA: Unremarkable. Intact. BONES/JOINTS: Unremarkable. Normal forefoot alignment. No bone marrow edema. No joint effusion. No acute or healing fracture or malalignment. OTHER SOFT TISSUES: Unremarkable. MRI/Lower Ext/No Jt/w/o IMPRESSION: 1. Mild tenosynovitis involving the flexor digitorum longus and flexor hallucis longus without tendon tearing. 2. No acute or healing fracture or malalignment. Electronically Signed: Bakari Hancock MD at 23:11 EDT ,
== END | disposition home or self-care (01) ==
LOC: MRI 14:29
PROVIDERS: PCP Internal Medicine; Referring Provider Podiatrist; Visit Provider Podiatrist
DX: M19.071 Primary osteoarthritis, right ankle and foot (principal); M25.774 Osteophyte, right foot; M79.671 Pain in right foot
CPT/HCPCS: 73718